=== PATIENT | female | born 1985 | race Hispanic/Latino ===

== ENCOUNTER 2024-11-04 15:35 | Emergency (ER) | payer MEDICARE, SELFPAY ==
--- OUTSIDE RECORDS SUMMARY | 2024-11-04 15:42 | XMS_ITS | Continuity of Care Document ---
Author Organization [facility] Address [address] [place] [address] Phone Care Team Providers Care Emergency Communications Dispatcher Name Role Phone Tom ALLYSONNeftali Unavailable Unavailable Allergies, Adverse Reactions, Alerts Substance Reaction Status Criticality latex Rash Active No Information Medications Medication Instructions Dosage Effective Dates (start - stop) Status Comments meloxicam 15 mg tablet TAKE 1 TABLET BY MOUTH EVERY DAY - Active hydrocodone 5 mg-acetaminophen 325 mg tablet take 1 tablet by oral route every 4 - 6 hours as needed for pain for DX: left dequervains M65.4 1 tablet - Active topiramate 50 mg tablet - Active Savella 50 mg tablet - Active GABAPENTIN (unknown strength) Not Available - Active propanolol - Active Procedures Procedure Date Office/outpatient visit,est, mod 2022 Office/outpatient visit,est, mod 2022 Wrist Xray Complete Min 3 Views 023 Office/outpatient visit,est, mod 2022 Postop followup visit Postop followup visit Wrist/forearm Excision Lesion, Extensors Office/outpatient visit,est, mod 2022 Wrist Xray Complete Min 3 Views 023 Inj/Aspiration Small Joint Or Bursa (Fin gers,Toes) Office/outpatient visit,est, mod 2022 Dexamethasone Sodium Phosphate 23 Shoulder Xray Complete Min Of 2 Views Ju n-22-2023 Advance Directives Directive Yes / No Effective Date File Name No Information Encounters Encounter Description Practice Location Reason(s) For Visit Diagnoses Date Provider Providers Copied on Encounter Office/outpa tient visit,[facility], [address] [place] [address], [id number], tel:[phone] [facility] Body mass index (BMI) 33.0-33.9, adultWrist pain, rightWrist pain, leftOveruse syndrome of right hand, initial encounterOveruse syndrome of left hand, initial encounter 3 Tom Lindsay. [address] [place] [address], [id number] , . tel:[phone] Referring Provider: Neftali Santos, [address] [place] [address], [id number] . tel:[phone] Office/outpa tient visit,[facility], [address] [place] [address], [id number], tel:[phone] [facility] Radial styloid tenosynovitis [de Quervain]Ganglion , left wristPain in left wrist 3 Tom Lindsay. [address] [place] [address], [id number] , . tel:[phone] Referring Provider: Neftali Santos, [address] [place] [address], [id number] . tel:[phone] Office/outpa tient visit,[facility], [address] [place] [address], [id number], tel:[phone] [facility] wrist (chief complaint) Pain in unspecified wristBody mass index (BMI) 33.0-33.9, adultDe Quervain's tenosynovitis, rightCell phone elbow, right 3 Tom Lindsay. [address] [place] [address], [id number] , . tel:[phone] Referring Provider: Neftali Santos, [address] [place] [address], [id number] . tel:[phone] [facility] [address] [place] [address], [id number], tel:[phone] [facility] wrist (chief complaint) Body mass index (BMI) 33.0-33.9, adultEncounter for exam of blood pressure w/o abnormal findingsRadial styloid tenosynovitis [de Quervain]Ganglion , left wristPain in left wristOther specified postprocedural states 3 Tom Lindsay. [address], [place], [id number] , . tel:[phone] Referring Provider: Neftali Santos, [address] [place] [address], [id number] . tel:[phone] [facility], [address] [place] [address], [id number], tel:[phone] [facility] wrist (chief complaint) Body mass index (BMI) 34.0-34.9, adultEncounter for exam of blood pressure w/o abnormal findingsStatus post de Quervain's release surgery 3 Tom Lindsay. [address], [place], [id number] , [place]. tel:[phone] Referring Provider: Neftali Santos, [address] [place], [address] . tel:[phone] [facility], [address] [place] [address], [id number], tel:[phone] [facility] No Information 3 Lito Peraza. [address] [place] [address], [id number] , [place]. tel:[phone] Referring Provider: Stu Singletary, [address] [place] [address], [id number] . tel:[phone] [facility], [address] [place] [address], [id number], tel:[phone] [facility] No Information 3 Lito Peraza. [address] [place] [address], [id number] , [place]. tel:[phone] [facility], [address] [place] [address], [id number], tel:[phone] [facility] De Quervain's tenosynovitis, leftGanglion cyst of wrist, left 3 Lito Peraza. [address], [place], [id number] , . tel:[phone] Office/outpa tient visit,est, mod [facility], [address] [place] [address], [id number], tel:[phone] [facility] hand (chief complaint) Radial styloid tenosynovitis [de Quervain]Carpal tunnel syndrome, right upper limbGanglion cyst of wrist, left 3 Tom Lindsay. [address], [place], [id number] , . tel:[phone] Referring Provider: Neftali Santos, [address] [place], [address] . tel:[phone] Office/outpa tient visit,est, mod [facility], [address] [place] [address], [id number], tel:[phone] [facility] left wrist (chief complaint) Pain in left wristDe Quervain's tenosynovitis, left 3 Tom Lindsay. [address], [place], [id number] , . tel:[phone] Referring Provider: Camila White, [address] [facility], [place], [address]. tel:[phone] [facility], [address] [place] [address], [id number], tel:[phone] [facility] shoulder (chief complaint) Pain in right shoulderRight carpal tunnel syndromeLevator scapula syndromeDe Quervain's tenosynovitis, left 3 Tom Lindsay. [address], [place], [id number] , [place]. tel:[phone] Referring Provider: Camila White [address] [place], [address]. tel:[phone] Family History Family Member Type Diagnosis Age At Onset Problem Family history of Cancer, un known Problem Family history of Heart dise ase Problem Family history of Diabetes m kirstenshasta Payers Payer name Insurance type Covered green party ID Authoriza tion(s) No Information Social History Type Description Quantity Date Captured Comments Alcohol Use Details Unknown Caffeine Use Details Unknown Tobacco Use Status Current non-smoker Smoking Status Never smoker Non-Smoking Tobacco Use Details : No Details Available : No Details Available Sex Female Vital Signs Date / Time: Height Weight BMI Pulse Rate Blood Pressure Temperature Respiratory Rate Body Surface Area Head Circumference Head Circ. Percentile Wt./Roddy. Percentile BMI percentile Pulse Ox Inhaled Ox 10:05 AM 66.00 in 94.801 kg (209.00 lbs) 33.7 3 kg/m eter (2) 83 /min 110/61 mm[Hg] 2.10 meter(2) Chief Complaint And Reason For Visit No Information Reason For Referral Reason For Referral No Information Plan Of Treatment Date Type Action Status Goal Tobacco cessation counseling completed Goal Tobacco cessation counseling completed Goal Tobacco cessation counseling completed Goal Tobacco cessation counseling completed Future Order: Radiology Order Wr ist Xray Complete Min 3 Views ([id number]), Ordered on: Ordered Future Order: Radiology Order Wr ist Xray Complete Min 3 Views ([id number]), Ordered on: Ordered Future Order: Radiology Order Ne edle EMG, Each Extremity Complete 5 Or More Muscles ([id number]), Ordered on: Ordered Future Order: Radiology Order Ne rve Conduction Studies 5-6 ([id number]), Ordered on: Ordered Future Order: Radiology Order Sh oulder Xray Complete Min Of 2 Views ([id number]), Ordered on: Ordered History Of Present Illness Encounter Date Complaint History Of Prese nt Illness wrist wrist wrist hand left wrist shoulder Functional Status Date Functional Assessmen t No Information Instructions Date Instruction Additional Infor mation Giving encouragement to exercise Related to Body mass index [BMI] 33.0-33.9, adult Giving encouragement to exercise Related to Body mass index [BMI] 33.0-33.9, adult Giving encouragement to exercise Related to Blood pressure check Prescribed activity/exercise edu cation Related to Body mass index [BMI] 33.0-33.9, adult Giving encouragement to exercise Related to Blood pressure check Giving encouragement to exercise Related to Body mass index [BMI] 34.0-34.9, adult Assessments Type Assessment Date assessment Body mass index [BMI] 33.0-33.9, adult assessment Wrist pain, right assessment Wrist pain, left assessment Overuse syndrome of right hand, initial encounter assessment Overuse syndrome of left hand, i nitial encounter Patient Care Teams Name Effective Dates (start - stop) Status Members No Information
--- OUTSIDE RECORDS SUMMARY | 2024-11-04 15:42 | XMS_ITS | Data Portability ---
Author Organization [place] - [facility] Address [address] [place] [address] Assessment No assessment recorded. Plan of Treatment Reminders Order Date Submit Date Provider Last Modified By Organization Details Last Modified Time Details Appointments None record ed. Lab None record ed. Referral None record ed. Procedures None record ed. Surgeries None record ed. Imaging None record ed. Medication Orders None record ed. Patient TargetsNo targets recorded. Patient InstructionsNo instructions recorded. Reason for Referral None Reported. Results Created Date Observation Date Name Description Value Unit Range Abnormal Flag Note LastModifiedBy Organization Detail LastModifiedTime 12/17/1912/15/2022 XR, shoul josé manuel, 2 or more view [facility] [place], [place] [address] [place] [address] JEVON Bryan REPORT Name: HANK BAZANGEORGIA Room #: : 1984 Accoun t #: [id number] Bed #: Age: 37 Years Patien t Type: Outpat ient Order Date/T beau: [id number] Sex: F Admit Date/T beau: Order# : Access ion#: Exam Descri ption: Admitt ing Diagno sis: [id number] 1 UE-SHL 2VW PLUS Dictat ed By: Jamaal Madrigal ng Physic анна: BK URBANO Attend ing Physic анна: BK URBANO Primar y Care Physic анна: BK URBANO Histor y: pain in right should er Techni que: Right should er series . 8 views. Compar isons: None availa ble. Findin gs: There is no eviden ce for fractu re or disloc ation. Alignm ent is normal . Mild acromi oclavi cular degene rative change s identi fied. Glenoh umeral joint appear s normal . No supici ous osseou s lesion . Soft tissue s and visual ized lungs are unrema rkable . IMPRES FARAZ: Mild acromi oclavi cular degene rative change s. Electr onical ly signed by: Jamaal Madrigal MD 023 8:11 AM CDT Workst ation: [id number] PAGE [address] (Radiology) [address] [place] [address], [id number], 12/16/2022 09:29:40 12/17/19 23 12/15/2022 XR, shoul josé manuel, 2 or more view No observ ation record ed. [address] (Imaging) [address] [place] [address], [address], 12/16/2022 13:49:07 Result Notes None recorded. Problems Name Problem SNOMED Code Status Onset Date Resolution Date Notes Provider Name and Address Organization Details Recorded Time Pain of right shoulder joint [id number] 00 Active 2022 Joanne Pugh [facility] 16:19:16 Problem Notes None recorded. Procedures Surgical History None recorded. Imaging Results Imaging Date Name Status LastModified by Organiz ation Details LastModified Time 12/15/2022 XR, shoulder, 2 or more view completed [address] (Radiology) [address] [place], [address], 12/16/2022 09:29:40 12/15/2022 XR, shoulder, 2 or more view completed [address] (Imaging) [address] [place], [address], 12/16/2022 13:49:07 Procedure Notes None recorded. Medical Equipment None Reported. Medications Name Sig Start Date Stop Date Status Note LastModified by Organization Details LastModified Time promethazine- DM 6.25 mg-15 mg/5 mL oral syrup TAKE 5 ML BY MOUTH EVERY 4 HOURS NEEDED. NOT TO EXCEED 30 ML IN 24 HOURS active Not Available Not Available No t Available tizanidine 4 mg tablet TAKE 1 TABLET BY MOUTH EVERY 6 HOURS NEEDED active Not Available Not Available No t Available famotidine 40 mg tablet TAKE 1 TABLET BY MOUTH EVERY DAY active Not Available Not Available No t Available prednisone 20 mg tablet TAKE 2 TABLETS BY MOUTH EVERY DAY FOR 5 DAYS active Not Available Not Available N ot Available topiramate 25 mg tablet TAKE 1 TABLET BY MOUTH AT BEDTIME FOR 7 DAYS, THEN INCREASE TO 2 TABLETS BY MOUTH AT BEDTIME active Not Available Not Available No t Available propranolol 60 mg tablet active Not Available Not Available Not Available propranolol 10 mg tablet TAKE 1 TABLET BY MOUTH THREE TIMES DAILY NEEDED FOR ANXIETY active Not Available Not Available No t Available amoxicillin 875 mg tablet active Not Available Not Availabl e Not Available amitriptyline 25 mg tablet TAKE 1 TABLET BY MOUTH EVERY NIGHT AT BEDTIME. INCREASE BY 1 EVERY WEEK OR 2 UNTIL TAKING 3 TABLETS EVERY NIGHT active Not Available Not Available No t Available estradiol 1 mg tablet TAKE 1 TABLET BY MOUTH EVERY DAY active Not Available Not Available No t Available amitriptyline 10 mg tablet TAKE 1 TABLET BY MOUTH EVERY NIGHT AT BEDTIME active Not Available Not Available No t Available meclizine 25 mg tablet active Not Available Not Available No t Available orphenadrine citrate ER 100 mg tablet,extend ed release TAKE 1 TABLET BY MOUTH TWICE DAILY active Not Available Not Available No t Available gabapentin 300 mg capsule TAKE 1-3 CAPSULES BY MOUTH AT BEDTIME FOR nerve pain active Not Available Not Available No t Available folic acid 1 mg tablet TAKE 1 TABLET BY MOUTH EVERY DAY active Not Available Not Available No t Available Vitamin D2 1,250 mcg (50,000 unit) capsule TAKE 1 CAPSULE BY MOUTH EVERY WEEK active Not Available Not Available N ot Available fluticasone propionate 50 mcg/actuation nasal spray,suspens ion SPRAY 1 SPRAY IN EACH NOSTRIL EVERY DAY active Not Available Not Available No t Available naproxen 500 mg tablet TAKE 1 TABLET BY MOUTH TWICE DAILY active Not Available Not Available No t Available cholestyramin e (with sugar) 4 gram powder for susp in a packet mix one PACKET AND drink BY MOUTH EVERY DAY active Not Available Not Available No t Available bupropion HCl XL 150 mg 24 hr tablet, extended release TAKE 1 TABLET BY MOUTH EVERY DAY active Not Available Not Available No t Available topiramate 50 mg tablet active Not Available Not Available No t Available duloxetine 20 mg capsule,delay ed release TAKE 1 CAPSULE BY MOUTH TWICE DAILY active Not Available Not Available No t Available pregabalin 50 mg capsule TAKE 1 CAPSULE BY MOUTH TWICE A DAY active Not Available Not Available No t Available Savella 50 mg tablet TAKE 1 TABLET BY MOUTH TWICE A DAY. *AFTER TITRATION PACK* active Not Available Not Available No t Available Savella 12.5 mg (5)-25 mg(8)-50mg(42 ) tablets in a dose pack active Not Available Not Available Not Available Vitals Date Recorded Body height Body mass index (BMI) Body weight Heart rate Oxygen saturation Oxygen saturation in Arterial blood by Pulse oximetry Pain severity - 0-10 verbal numeric rating [Score] - Reported Systolic blood pressure Diastolic blood pressure Provider Name and Address Organization Details Last Updated DateTime 3 167.64 cm 34.1 kg/m2 60766.4 2 g 96 /min 98 % 98 % 7 122 mm[Hg] 76 mm[Hg] [facility] 3 15:36:12 Social History None recorded. Functional Status None recorded. Mental Status None recorded. Family History Nothing Reported. Medical History No medical history recorded. Gynecological HistoryNo gynecological history recorded. Obstetrics History GPAL:G 0 P 0 0 0 0 Past Encounters Encounter ID Performer Location Encounter Start Date Encounter Closed Date Diagnosis/Indication Diagnosis SNOMED-CT Code Diagnosis ICD10 Code Diagnosis Note [id number] [facility] [address] [place] [address] 12/15/2022 14:54:28 12/15/2022 16:06:03 Health Concerns Section Related Observation LastModified by Organization Detai ls LastModified Time None Recorded Concern Status LastModified by Organization Details LastModified Time None Recorded Advance Directives Directive None Recorded Payers Encounter Date Sequence Insurance Name Policy Number Policy Farooq Covered Member ID Farooq Member ID Guarantor Name 12/15/2022 1 [employer] OF OR Mal[facility] ON OR AFTER 08/28/2020 (MEDICAID REPLACEMENT - HMO) [place] Mer[employer] [id number] [place] [facility] Episode No OBEpisode recorded.
--- OUTSIDE RECORDS SUMMARY | 2024-11-04 15:42 | XMS_ITS | Continuity of Care Document ---
Author Organization [facility] Address [address] [place] [address] Phone Care Team Providers Care Adjuster Name Role Phone Lg Woods MD Unavailable Unavailable Allergies, Adverse Reactions, Alerts Substance Reaction Status Criticality HYDROXYCHLOROQUINE SULFATE Active N o Information latex Active No Information Medications Medication Instructions Dosage Effective Dates (start - stop) Status Comments Topamax 50 mg tablet take 1 tablet by or al route every day 50 MG - Active Savella 50 mg tablet take 1 Tablet by or al route 2 times every day 50 MG - Active orphenadrine citrate ER 100 mg tablet,extended release take 1 tablet by oral route 2 times every day - Active propranolol 10 mg tablet take 1 Tablet by oral route 3 times every day 10 MG - Active cholestyramine (with sugar) 4 gram oral powder take 1 scoop by oral route 1 time every day - Active gabapentin 300 mg capsule take 1 capsule by oral route 2 times every day 300 MG - Active estradiol 1 mg tablet take 1 tablet by o ral route every day 1 MG - Active famotidine 40 mg tablet take 1 tablet by oral route every day at bedtime 40 MG - Active fluticasone propionate 50 mcg/actuation nasal spray,suspension 1 spray by intranasal route every day - Active Procedures Procedure Date Med record copy admin Med record copy per page Advance Directives Directive Yes / No Effective Date File Name No Information Encounters Encounter Description Practice Location Reason(s) For Visit Diagnoses Date Provider [facility], [address] , [place], [address], [place] tel:[phone] [facility] No Information 4 Chuck Castanon. [address], [place], [address], [place]. tel: [phone] [facility], [address] , [place], [address], [place] tel:[phone] [facility] Headaches (chief complaint)Hx of fibromyalgia (chief complaint) Body mass index (BMI) 35.0-35.9, adultMigraine without aura and without status migrainosus, not intractableFibromyalgia 3 Chuck Castanon. [address], [place], [address], [place]. tel: [phone] [facility], [address] , [place], [address], tel:[phone] [facility] Headaches (chief complaint)Hx of fibromyalgia (chief complaint) Body mass index (BMI) 35.0-35.9, adultMigraine without aura and without status migrainosus, not intractableFibromyalgia 3 Chuck Castanon. [address], [place], [address], [place]. tel: [phone] [facility], [address] , [place], [address], [place] tel:[phone] [facility] Headaches (chief complaint)Hx of fibromyalgia (chief complaint) Body mass index (BMI) 35.0-35.9, adultMigraine without aura and without status migrainosus, not intractableFibromyalgia 3 Chuck Castanon. [address] , [place], [address], [place]. tel:[phone] [facility], [address] , [place], [address], [place] tel:[phone] [facility] Hx of fibromyalgia (chief complaint)Hea daches (chief complaint) Body mass index (BMI) 35.0-35.9, adultFibromyalgiaMigrain e without aura and without status migrainosus, not intractable 3 Chuck Castanon. [address], [place], [address], [place]. tel: [phone] [facility], [address], [place], [address], [place] tel:[phone] [facility] Hx of fibromyalgia (chief complaint) Body mass index (BMI) 35.0-35.9, adultFibromyalgia 2 Chuck Castanon. [address], [place], [address], [place]. tel: [phone] [facility], [address], [place], [address], [place] tel:[phone] [facility] Hx of fibromyalgia (chief complaint)Hea daches (chief complaint) Body mass index (BMI) 36.0-36.9, adultFibromyalgiaMigrain e without aura and without status migrainosus, not intractable 2 Chuck Castanon. [address], [place], [address], [place]. tel: [phone] [facility], [address], [place], [address], [place] tel:[phone] [facility] No Information 2 Chuck Castanon. [address], [place], [address], [place]. tel: [phone] [facility], [address], [place], [address], [place] tel:[phone] [facility] Hx of fibromyalgia (chief complaint)Hea daches (chief complaint) Body mass index (BMI) 35.0-35.9, adultFibromyalgiaMigrain e without aura and without status migrainosus, not intractable 2 Chuck Castanon. [address], [place], [address], [place]. tel:[phone] Family History Family Member Type Diagnosis Age At Onset Mother Problem HBP/diabetes Father Problem Heart disease/diabetes Payers Payer name Insurance type Covered libertarian ID Authoriza tion(s) No Information Social History Type Description Quantity Date Captured Comments Sex Female Smoking Status No Information Chief Complaint And Reason For Visit No Information Plan Of Treatment Date Type Action Status Goal Lifestyle education regardin g diet completed Goal Lifestyle education regardin g diet completed Goal Lifestyle education regardin g diet completed Goal Lifestyle education regardin g diet completed Goal Lifestyle education regardin g diet completed Goal Lifestyle education regardin g diet completed Goal Lifestyle education regardin g diet completed History Of Present Illness Encounter Date Complaint History Of Prese nt Illness Headaches The patient retu rns for follow-up of migraine headaches and fibromyalgia. At the present time, she has infrequent headaches and they are under adequate control with Topamax 50 mg p.o. HS and propranolol 10 mg p.o. t.i.d. No report of limb paresthesia, cognitive impairment or dizziness on the current drug regimen. Hx of fibromyalgia This patient has a history of fibromyalgia and she is currently on Savella 50 mg b.i.d. and orphenadrine 100 mg p.o. b.i.d. these 2 medications are helping her fibromyalgia but she does have some daytime drowsiness. This being the case, I did asked her to reduce the orphenadrine to 100 mg p.o. HS. Headaches The patient retu rns for follow-up of migraine headaches and fibromyalgia. During the last visit, she was started on Topamax 50 mg p.o. HS and this has resulted in moderate improvement of her headaches. No report of limb paresthesia or cognitive impairment while on this medication. She would like to stay on the same dosage of Topamax at the present time. Hx of fibromyalgia She has a tati g history of fibromyalgia and is currently taking Norflex for this condition. During the last visit, she reports that her jewelry casting model maker apprentice was planning to put her on a new medication but this has not been executed yet. She does report having underlying anxiety and depression, and arrangements have been made for her to see a local psychiatrist or counselor shortly. The patient denies having suicidal ideation at the present time. Headaches The patient retu rns for follow-up of headaches and fibromyalgia. Currently, she reports having 2 migraine attacks weekly. She is taking propranolol 10 mg p.o. t.i.d. and Excedrin p.r.n. at this time. I suggested a trial of Topamax therapy and she is agreeable. Hx of fibromyalgia She was recen tly started on pregabalin therapy for this condition. It did help her pain but unfortunately also caused her to have a skin rash. She has been taken off pregabalin therapy with resolution of the skin rash. She continues on Norflex 300 mg p.o. b.i.d. at this time. She notes that her jewelry casting model maker apprentice is planning to put her on a new medication for the fibromyalgia shortly. Hx of fibromyalgia The patient r luke for follow-up of fibromyalgia. During the last visit, she was placed on pregabalin 50 mg p.o. b.i.d. This medication did help her fibromyalgia but also caused her to have a mild skin rash and dizziness. This being the case, I did asked her to stop using this medication. Headaches She has a histor y of migraine headaches and therehas been worsening of this condition lately. In reviewing her medication list, I noted that she is on propranolol 10 mg p.o. t.i.d. at this time. She does not know the names of past medications used for this condition presently. Hx of fibromyalgia The patient r luke for follow-up of fibromyalgia. She saw a local jewelry casting model maker apprentice recently and he concurred with this diagnosis. The patient also complains of having posterior neck pain and occipital headaches. I had suggested a trial of trigger point injections but she would like to put this off presently. Her current medications include duloxetine 20 mg p.o. b.i.d., gabapentin 300 mg p.o. b.i.d. and Norflex 300 mg p.o. b.i.d. I suggested a trial of pregabalin and she is agreeable. Hx of fibromyalgia The patient r luke for follow-up of fibromyalgia. Since the last office visit, she has seen a jewelry casting model maker apprentice at [facility]. He confirmed the diagnosis of fibromyalgia in this patient and she was begun on Norflex 300 mg p.o. b.i.d. The patient is not certain as to whether this medication is helping her condition. Currently, she is also on duloxetine 20 mg p.o. daily and gabapentin for treatment of back pain. Headaches She has a histor y of migraine headaches but this has not been bothersome of late. She has been taking Tylenol p.r.n. for the above headaches. She also had a sleep study done recently and there is no evidence of obstructive sleep apnea by history. Hx of fibromyalgia I was request ed to see this 36-year-old woman for follow-up of fibromyalgia. The following history was provided to me by the patient and the records of Garima Pelletier APRN. She has been known to have this condition following her hysterectomy in the winter of 2020. She complains of a persistent aching pain over the posterior neck with radiation to both shoulders, and the lumbar spine. She also has pain in both wrists, both knees and calves. She complains of nocturnal numbness involving both hands. She also has numbness involving calves and feet. She describes numbness as a pins and needles sensation. She also has weakness but not atrophy involving the arms and less so the legs. She does not require a cane for ambulation and there has been no report of any falls. She denies having urinary incontinence. She has a history of positive VENTURA and COVID-19 infection in June 2020. She has seen Dr. Ramo Hopper at [facility] for evaluation of this condition. He also suspects that the patient has obstructive sleep apnea. She was placed on amitriptyline 75 mg p.o. HS and it did not help her fibromyalgia. Headaches The patient has been bothered by intermittent headaches since 2019. She complains of having a throbbing pain over the occiput with radiation to the frontal area of her head. When severe, they have been associated with photophobia and sonophobia, but not nausea or emesis. Each attack would last 1- 2 days and she has been having 2 attacks weekly of late. The patient has been taking nonprescription oral analgesics for treatment of this condition presently. Instructions Date Instruction Additional Infor mation Lifestyle education regarding di et Related to Body mass index [BMI] 35.0-35.9, adult Lifestyle education regarding di et Related to Body mass index [BMI] 35.0-35.9, adult Lifestyle education regarding di et Related to Body mass index [BMI] 35.0-35.9, adult Lifestyle education regarding di et Related to Body mass index [BMI] 35.0-35.9, adult Lifestyle education regarding di et Related to Body mass index [BMI] 35.0-35.9, adult Lifestyle education regarding di et Related to Body mass index [BMI] 36.0-36.9, adult Lifestyle education regarding di et Related to Body mass index [BMI] 35.0-35.9, adult Assessments Type Assessment Date No Information
[2024-11-04 15:48] VITALS: BP 126/87; PULSE 120; RESP 20; TEMP 36.4; O2SAT 100
--- NOTE | 2024-11-04 16:31 | ED_ITS ---
HPI - Abdominal Pain General Chief Complaint: Abdominal Pain Stated Complaint: vomiting and rib pain/ chills Source: patient History of Present Illness HPI narrative: Patient presents for evaluation of abdominal pain. Symptom onset today. Pain is constant with interval worsening in improvement. She cannot identify any aggravating or alleviating factors. She describes the pain as sharp and severe. She has associated nausea, vomiting, diarrhea, and chills. She states she was diagnosed with influenza about nine days ago. Her primary symptoms at that time were sinus congestion and headache. She was given Tamiflu. Her symptoms improved. She denies any urinary symptoms. She has a history of ovarian and cervical cancer and is status post total hysterectomy. Related Data Allergies Allergy/AdvReac Type Severity Reaction Status Date / Time aspirin Allergy Intermediate Rash Verified 11/04/24 15:49 latex Allergy Intermediate Rash Verified 11/04/24 15:49 Review of Systems Review of Systems: CONSTITUTIONAL: Reports chills. Denies fever, or sweats. EYES: Denies visual changes, redness, or discharge. ENT: Denies rhinorrhea, congestion, sore throat, or otalgia. CARDIOVASCULAR: Denies chest pain, palpitations, or edema. RESPIRATORY: Denies cough or dyspnea. GASTROINTESTINAL: reports abdominal pain, nausea, vomiting and diarrhea GENITOURINARY: Denies dysuria or hematuria. SKIN: Denies rash or itching. MUSCULOSKELETAL: Denies back pain, joint pain, or myalgia. NEUROLOGIC: Denies headache, numbness, dizziness, or weakness. PSYCHIATRIC: Denies anxiety or depression. [facility] Past Medical History Medical History Ovarian cancer Cervical cancer Surgical History Surgical History History of total hysterectomy Family History Family History Mother Family history non-contributory Social History Social History Living arrangements: with family Gender identity (if verbalized by the patient): Female Sexual Orientation (if Verbalized by the Patient): Straight or Heterosexual Spiritual care concerns: No Exam Narrative: GENERAL:Visibly uncomfortable. Well-appearing, well-nourished, and in no acute distress. HEAD: Normocephalic, atraumatic. EYES: PERRLA and EOMI. ENT: Nares clear, no rhinorrhea or epistaxis. Mucous membranes moist. Oropharynx without tonsillar hypertrophy exudate or other lesions. Bilateral TMs pearly gunter nonbulging NECK: Supple. No adenopathy or masses. No carotid bruits or JVD CHEST: Clear to auscultation. No respiratory distress. No wheezes rales or rhonchi HEART: Regular rate and rhythm. No murmur heard. Normal peripheral pulses. ABDOMEN: Soft, nondistended, normal active bowel sounds. There is tenderness in RUQ, RLQ and suprapubic region. there is guarding but no rebound EXTREMITIES: Normal range of motion. No edema. SKIN: Warm, dry, no rash. NEURO: No focal deficits. Alert and oriented x3. PSYCH: Normal mood and affect. Course Course Emergency Course: This is a 39-year-old female who presented for evaluation of abdominal pain. She is tender on the right side and is guarding. I recommended she be transferred to the hospital for further evaluation and workup. She is agreeable with this plan. [facility] in [place], [place] is her facility of choice. I contacted the emergency department at [facility] and spoke with RN, Gillian. She indicates that Dr Bolton will accept patient for transfer there. Patient transferred via private vehicle. Level of Care: Express Care Visit Vital Signs Vital signs: Vital Signs Temperature 36.4 C L 11/04/24 15:48 Pulse Rate 120 H 11/04/24 15:48 Respiratory Rate 11/04/24 15:48 Blood Pressure 126/87 11/04/24 15:48 Pulse Oximetry 100 11/04/24 15:48 Oxygen Delivery Room Air 11/04/24 15:48 Temperature 36.4 C L 11/04/24 15:48 Pulse Rate 120 H 11/04/24 15:48 Respiratory Rate 11/04/24 15:48 Blood Pressure 126/87 11/04/24 15:48 Pulse Oximetry 100 11/04/24 15:48 Oxygen Delivery Room Air 11/04/24 15:48 Discharge Plan Discharge Clinical Impression: Abdominal pain Patient Disposition: Acute Care Hospital Condition: Stable Instructions: Abdominal Pain (ED) Patient Language: Polish Follow-up/Referrals: UNKNOWN,DOCTOR [Primary Care Provider] - Time of Disposition: 16:31
== END 2024-11-04 16:30 | disposition short-term general hospital (02) ==
PROVIDERS: Emergency Provider Nurse Practitioner
DX: R10.11 Right upper quadrant pain (principal); R10.31 Right lower quadrant pain; Z85.43 Personal history of malignant neoplasm of ovary; Z85.41 Personal history of malignant neoplasm of cervix uteri; Z90.710 Acquired absence of both cervix and uterus
CPT/HCPCS: 99212; G0463

== ENCOUNTER 2024-11-23 13:44 | Emergency (ER) | payer MEDICARE, SELFPAY ==
[2024-11-23 13:54] VITALS: BP 120/78; PULSE 90; RESP 17; TEMP 36.1; O2SAT 100
--- NOTE | 2024-11-23 13:54 | ED.SKABFB ---
HPI - Skin/Abscess/Foreign Bdy General Chief complaint: Skin/Abscess/Foreign Body Stated complaint: Leg bruising Time Seen by Provider: 11/23/24 13:54 Source: patient Mode of arrival: ambulatory Limitations: no limitations History of Present Illness HPI narrative: 39 yo F presents with bruise to L lower leg. Was kicked by her dog 2 wks ago. Has a hard spot to center of bruise. Concerned for DVT. All systems reviewed and negative except as noted above. Related Data Allergies Allergy/AdvReac Type Severity Reaction Status Date / Time aspirin Allergy Mild Rash Verified 11/23/24 13:50 latex Allergy Mild Rash Verified 11/23/24 13:50 Review of Systems Review of Systems: CONSTITUTIONAL: Denies fever, chills, or sweats. EYES: Denies visual changes, redness, or discharge. ENT: Denies rhinorrhea, congestion, sore throat, or otalgia. CARDIOVASCULAR: Denies chest pain, palpitations, or edema. RESPIRATORY: Denies cough or dyspnea. GASTROINTESTINAL: Denies abdominal pain, nausea, vomiting, or diarrhea. GENITOURINARY: Denies dysuria or hematuria. SKIN: Denies rash or itching. Reports bruise to left lower leg. MUSCULOSKELETAL: Denies back pain, joint pain, or myalgia. NEUROLOGIC: Denies headache, numbness, or weakness. PSYCHIATRIC: Denies anxiety or depression. All other systems reviewed are negative, except as documented in HPI. [facility] Past Medical History Medical History Ovarian cancer Cervical cancer Surgical History Surgical History History of total hysterectomy Family History Family History Mother Family history non-contributory Social History Social History Living arrangements: with family Gender identity (if verbalized by the patient): Female Sexual Orientation (if Verbalized by the Patient): Straight or Heterosexual Spiritual care concerns: No Comments At time of signature, agree with nursing past medical, surgical, social and family history. There is no relevant family history pertinent to the presenting complaint. Exam Narrative: GENERAL: This is a well-nourished, well-developed patient, in no apparent distress. HEAD: normocephalic, atraumatic. EYES: PERRL. Sclera clear/white. Vision is grossly intact. EARS: External ears normal NOSE: External nose normal NECK: Neck supple, non-tender without lymphadenopathy, masses or thyromegaly. CARDIOVASCULAR: Regular rate and rhythm without murmurs, gallops, or rubs. RESPIRATORY: Clear to auscultation. Breath sounds equal bilaterally. No wheezes, rales, or rhonchi. SKIN: warm, Dry, intact with no suspicious lesions or rash, good texture and turgor. bruise to medial aspect L lower leg approx. 10x 8 cm in normal stages of healing, purplish blue. no warmth on erythema NEURO: awake, alert, and oriented to person, place and time. There were no obvious focal neurologic abnormalities. EXTREMITIES: No joint tenderness, effusion, or edema noted. there is no edema, tenderness, warmth or color change to LLE concerning for DVT. Course Course Level of Care: Express Care Visit Vital Signs Vital signs: reviewed MDM - Skin/Abscess/Foreign Bdy MDM Narrative Medical decision making narrative: bruise to LLE without concerns from infection. No findings concerning for DVT. Educated on DVT and when she should go to ER. Please be advised this is a medical document. It is intended for [id number] communication. It is written in medical language and may contain unfamiliar abbreviations or verbiage. Medical documents are intended to carry relevant information, facts as evident, and the clinical opinion of the practitioner at the time of the encounter. This report may have been done utilizing a voice recognition system. Attempts have been made to correct errors. However, there may be uncorrected grammatical, spelling, and recognition errors present. The file time of this note does not necessarily represent the time of service. Discharge Plan Discharge Clinical Impression: Contusion of left leg Qualifiers: Encounter type: initial encounter Qualified Code(s): S80.12XA - Contusion of left lower leg, initial encounter Patient Disposition: Home, Self-Care Condition: Stable Instructions: Contusion in Adults (ED) Additional Instructions: You have a bruise to your let lower leg in normal stages on healing. Take tylenol every 6 to 8 hours as needed for pain. Elevate when at rest. If you have swelling to your lower leg with pain go to the ER. Patient Language: Telugu Follow-up/Referrals: UNKNOWN,DOCTOR [Primary Care Provider] - Time of Disposition: 14:05
--- OUTSIDE RECORDS SUMMARY | 2024-11-23 15:38 | XMS_ITS | Clinical Summary ---
Author Organization [facility] Address [address] [place] [id number] Care Team Providers Care Cash Register Mechanic Name Role Phone Garima Pelletier NP Primary Care Provider [phone] Allergies Active Allergy Reactions Criticality Noted Date Comments Aspirin Other (see comments) Medium 03/25/2020 Latex 03/24/2022 Medications acetaminophen (TYLENOL) 500 mg tablet Take 1 tablet (500 mg total) by mouth every 6 (six) hours as needed Active fluticasone propionate (FLONASE) 50 mcg/actuation nasal spray SPRAY 1 SPRAY IN EACH NOSTRIL EVERY DAY 022 Active topiramate (TOPAMAX) 50 mg tablet topiramate 50 mg tablet Active ergocalciferol (VITAMIN D2) 1,250 mcg (50,000 unit) capsule Vitamin D2 1,250 mcg (50,000 unit) capsule TAKE 1 CAPSULE BY MOUTH EVERY WEEK Active promethazine-DM (PROMETHAZINE-D M) 6.25-15 mg/5 mL syrup Active famotidine (PEPCID) 20 mg tablet 023 Active cholestyramine (QUESTRAN) 4 gram packet MIX 1 PACKET AND drink BY MOUTH EVERY DAY 023 Active cetirizine (ZyrTEC) 10 mg tablet Take 1 tablet (10 mg total) by mouth daily 023 Active pregabalin (Lyrica) 200 mg capsuleIndicati ons:Fibromyalgi a Take 1 capsule (200 mg total) by mouth 2 (two) times a day 60 capsule 5 023 Active HYDROcodone-greg taminophen (NORCO) 5-325 mg per tabletIndicatio ns:Fibromyalgia ,Acute exacerbation of chronic low back pain Take 1 tablet by mouth every 6 (six) hours as needed for moderate pain 7 tablet Active Additional Information Patient not taking.Reported on 11/01/2024 hydroxychloroqu ine (PLAQUENIL) 200 mg tablet Take 1 tablet (200 mg total) by mouth daily Active folic acid (FOLVITE) 1 mg tablet Take 1 tablet (1 mg total) by mouth daily Active gabapentin (NEURONTIN) 300 mg capsule TAKE 1 TO 3 CAPSULES BY MOUTH AT BEDTIME FOR nerve pain Active escitalopram (LEXAPRO) 5 mg tablet TAKE 1 TABLET EVERY DAY BY ORAL ROUTE AT BEDTIME FOR 30 DAYS, FOR DEPRESSION AND ANXIETY. Active DULoxetine (CYMBALTA) 20 mg capsule Take 1 capsule (20 mg total) by mouth 2 (two) times a day Active buPROPion XL (Wellbutrin XL) 150 mg 24 hr tablet TAKE 1 TABLET EVERY DAY BY ORAL ROUTE, FOR DEPRESSION. Active amitriptyline (ELAVIL) 10 mg tablet Take 1 tablet (10 mg total) by mouth nightly Active QUEtiapine (SEROquel) 50 mg tablet Take 1.5 tablets (75 mg total) by mouth daily Active propranoloL (INDERAL) 10 mg tablet Take 1 tablet (10 mg total) by mouth every 8 (eight) hours as needed for anxiety Active omeprazole (PriLOSEC) 40 mg capsule Take 1 capsule (40 mg total) by mouth 2 (two) times a day before meals Active milnacipran (Savella) 50 mg tablet tablet Take 1 tablet (50 mg total) by mouth 2 (two) times a day Active FLUoxetine (PROzac) 40 mg capsule Take 1 capsule (40 mg total) by mouth daily Active tirzepatide, weight loss, (ZEPBOUND) 5 mg/0.5 mL Pen InjectionIndica tions:Class 2 obesity due to excess calories without serious comorbidity with body mass index (BMI) of 35.0 to 35.9 in adult Inject 5 mg under the skin every 7 days Administer one pre-filled single-dose pen subcutaneously every 7 days. 2 mL 3 10/18/2 024 Active Additional Information Patient not taking.Reported on 11/01/2024 ondansetron (ZOFRAN) 4 mg tablet Take 1 tablet (4 mg total) by mouth every 6 (six) hours 12 tablet 024 Active diCYCLOMine (BENTYL) 20 mg tablet Take 1 tablet (20 mg total) by mouth 2 (two) times a day 20 tablet Active celecoxib (CeleBREX) 200 mg capsuleIndicati ons:Fibromyalgi a TAKE 1 CAPSULE (200 MG TOTAL) BY MOUTH DAILY NEEDED FOR MODERATE PAIN ,TAKE WITH FOOD 30 capsule 3 024 2024 Active albuterol HFA 90 mcg/actuation inhaler inhale 2 puffs every 4 hours by inhalation route as needed 025 Active meloxicam (MOBIC) 15 mg tablet Take 1 tablet (15 mg total) by mouth daily 023 Active methylPREDNISol one (MEDROL) 8 mg tablet TAKE 5 TABS (40MG) BY MOUTH EVERY 6 HOURS FOR 1 WEEK THEN 2 TABS (16MG) EVERY OTHER DAY FOR 1 MONTH 025 Active orphenadrine (NORFLEX) 100 mg 12 hr tabletIndicatio ns:Fibromyalgia ,Strain of muscle, fascia and tendon of lower back, initial encounter Take 1 tablet (100 mg total) by mouth 2 (two) times a day as needed for muscle spasms 60 tablet 1 025 Active orphenadrine (NORFLEX) 100 mg 12 hr tabletIndicatio ns:Fibromyalgia Take 1 tablet (100 mg total) by mouth 2 (two) times a day as needed for muscle spasms 60 tablet 022 2024 Discontinued(R eorder*) methocarbamoL (ROBAXIN) 500 mg tablet 023 2024 Discontinued cyclobenzaprine (FLEXERIL) 10 mg tablet Take 1 tablet (10 mg total) by mouth every 8 (eight) hours as needed 2024 Discontinued diCYCLOMine (BENTYL) 20 mg tablet Take 1 tablet (20 mg total) by mouth every 6 (six) hours 024 2024 Discontinued colchicine (COLCRYS) 0.6 mg tabletIndicatio ns:Acute gout involving toe of right foot, unspecified cause Take 1 tablet (0.6 mg total) by mouth daily Take 2 tablets now then 1 tablet 1 hour later. 3 tablet 024 2024 Discontinued cyclobenzaprine (FLEXERIL) 10 mg tablet Take 1 tablet (10 mg total) by mouth 3 (three) times a day for 10 days 30 tablet 024 2024 Discontinued orphenadrine (NORFLEX) 100 mg 12 hr tabletIndicatio ns:Fibromyalgia ,Strain of muscle, fascia and tendon of lower back, initial encounter Take 1 tablet (100 mg total) by mouth 2 (two) times a day as needed for muscle spasms 60 tablet 1 025 2024 Discontinued(R eorder*) orphenadrine (NORFLEX) 100 mg 12 hr tabletIndicatio ns:Fibromyalgia ,Strain of muscle, fascia and tendon of lower back, initial encounter Take 1 tablet (100 mg total) by mouth 2 (two) times a day as needed for muscle spasms 60 tablet 1 025 2024 Discontinued(E ntered in Error*) Active Problems Problem Noted Date Diagnosed Date Class 2 obesity due to exces s calories without serious comorbidity with body mass index (BMI) of 35.0 to 35.9 in adult 06/23/2024 Encounters Date Type Department Care Team Description 11/08/2024 Telephone [facility] Internal Rheumatology [address] [place] [phone] Cadence Waldron [facility] CHOW 11/03/2024 Telephone [facility] [address] [phone] Lucia Mcacrty, GEMMA Change pharmacy to send rxs to 11/01/2024 11:00 AM PEDICURIST Office Visit [facility] Internal Rheumatology [address] [place] [phone] Manfred Morfin MD Fibromyalgia (Primary Dx); Plantar fasciitis; Pes cavus of both feet; Strain of muscle, fascia and tendon of lower back, initial encounter; Positive VENTURA (antinuclear antibody); Right elbow tendinitis 09/23/2024 11:36 PM PEDICURIST - 09/24/2024 3:35 AM PEDICURIST Emergency [address] [phone] Can Stahl MD Chest pain, unspecified type (Primary Dx); COVID-19 virus infection Discharge Disposition: Home self care 09/23/2024 Travel 08/29/2024 3:55 PM PEDICURIST - 08/29/2024 5:27 PM PEDICURIST Emergency [address] [phone] Balaji Baig MD Fall, initial encounter (Primary Dx); Strain of neck muscle, initial encounter; Strain of lumbar region, initial encounter; Contusion of face, initial encounter Discharge Disposition: Home self care 08/29/2024 Travel from Last 3 Months Social History Tobacco Use Types Packs/Day Years Used Date Smoking Tobacco: Never Smokeless Tobacco: Never Tobacco Cessation:Counseling Given: Not Answered Alcohol Use Standard Drinks/Week Comments Yes 0 (1 standard drink = 0.6 oz pure alcohol) less than 2-3 times a year/socially Comments No Sex and Gender Information Value Date Recorded Sex Assigned at Female 12/12/2023 6:09 PM CDT Legal Sex Female 4:27 PM CDT Gender Identity Female 12/12/2023 6:09 PM CDT Sexual Orientation Not on file Last Filed Vital Signs Vital Sign Reading Time Taken Comments Blood Pressure 122/76 11/01/2024 11:10 AM PEDICURIST Pulse 116 11/01/2024 11:10 AM PEDICURIST Temperature 36.3 C (97.4 F) 11/01/2024 11:10 AM PEDICURIST Respiratory Rate 16 11/01/2024 11:10 AM PEDICURIST Oxygen Saturation 99% 11/01/2024 11:10 AM PEDICURIST Inhaled Oxygen Concentration - - Weight 96 kg (211 lb 9.6 oz) 11/01/2024 11:10 AM PEDICURIST Height 164.5 cm (5' 4.76 ) 11/01/2024 11:[address] Body Mass Index 35.47 11/01/2024 11:10 AM PEDICURIST Plan of Treatment Upcoming Encounters Date Type Department Care Team (Late st Contact Info) Description 04/06/2025 11:00 AM CDT Office Visit [facility] Internal Rheumatology [address] [place] [phone] Manfred Morfin MD [address] [place] [address] Health Maintenance Due Date Last Done Comments Pap Smear 1985 MMR Vaccines (1 of 1 - Standard series) 1984 DTaP,Tdap,and Td Vaccines (1 - Tdap) 1990 Varicella Vaccines (1 of 2 - 13+ 2-dose series) 1996 Hepatitis B Vaccines (1 of 3 - 19+ 3-dose series) 2002 Mammogram 12/24/2023 12/23/2022 COVID-19 Vaccine (3 - 2023-2 5 season) 2024 05/01/2021, 04/03/2021 Influenza Vaccine (#1) 2024 RSV Vaccines and 60 Years or Older (1 - 1-dose 75+ series) 2058 AMB Pneumococcal 0-64 yrs Aged Out No longer eligible based on patient's age to complete this topic HIB Vaccines Aged Out No longer eligi ble based on patient's age to complete this topic HPV Vaccines Aged Out No longer eligi ble based on patient's age to complete this topic Hepatitis A Vaccines Aged Out No long er eligible based on patient's age to complete this topic IPV Vaccines Aged Out No longer eligi ble based on patient's age to complete this topic Meningococcal ACWY Vaccine Aged Out N o longer eligible based on patient's age to complete this topic Meningococcal B Vaccine Aged Out No l onger eligible based on patient's age to complete this topic RSV Vaccines <20 Months Aged Out No l onger eligible based on patient's age to complete this topic Procedures Procedure Name Priority Date/Time Associated Diagnosis Comments CTA PULMONARY EMBOLISM W CONTRAST STAT 09/24/2024 1:36 AM PEDICURIST XR CHEST 1 VW STAT 09/24/2024 12:59 AM PEDICURIST CBC AUTOMATED STAT 09/24/2024 12:28 AM PEDICURIST D-DIMER STAT 09/24/2024 12:28 AM PEDICURIST LIPASE STAT 09/24/2024 12:28 AM PEDICURIST MAGNESIUM STAT 09/24/2024 12:28 AM PEDICURIST HIGH SENSITIVITY TROPONIN I STAT 09/24/2024 12:28 AM PEDICURIST CMP STAT 09/24/2024 12:28 AM PEDICURIST CBC AND DIFFERENTIAL STAT 09/24/2024 12:28 AM PEDICURIST EKG STAT 09/23/2024 7:02 PM PEDICURIST Chest pain, unspecified type ED INFORMATION EXCHANGE 09/23/2024 6:[address] FACIAL BONES WO CONTRAST STAT 08/29/2024 4:[address] HEAD WO CONTRAST STAT 08/29/2024 4 :[address] CERVICAL SPINE WO CONTRAST STAT 08/29/2024 4:[address] LUMBAR SPINE WO CONTRAST STAT 08/29/2024 4:22 PM PEDICURIST ED INFORMATION EXCHANGE 08/29/2024 3:31 PM PEDICURIST BI DIAGNOSTIC BILATERAL Routine 12/23/2022 1:50 PM CDT Breast pain from Last 3 Months or Most Recently Relevant to Health Maintenance Results * CT angiogram pulmonary embolism with contrast (09/24/2024 1:36 AM PEDICURIST) Anatomical Region Laterality Modality Chest Computed Tomogra phy Narrative 09/24/2024 2:03 AM PEDICURIST EXAM: CTA OF THE CHEST. History: Chest pain, elevated D-dimer. Comparison: Chest radiograph 09/24/2024, CTA of the chest 12/12/2023 Technique: Multiplanar CT images through the thorax were obtained following administration of IV contrast. MIP images and 3-D reconstructions were also acquired. FINDINGS: Heart size is normal. No pericardial effusion. Great vessels are unremarkable. No pulmonary arterial filling defects. No enlarged intrathoracic lymph nodes. No consolidation within the lungs. No pleural fluid and no pneumothorax. No lung masses or lung nodules. Within the visualized upper abdomen, no acute findings. Status post cholecystectomy. No acute osseous abnormalities. Impression: Normal CTA of the chest All CT scans are performed using dose optimization techniques as appropriate to the performed exam and include at least one of the following: Automated exposure control, adjustment of the mA and/or kV according to size, and the use of iterative reconstruction technique. Electronically signed by: BLAKE RIVERA M.D. Date: 09/24/2024 Time: 02:02 Procedure Note Blake Rivera MD - 09/24/2024 EXAM: CTA OF THE CHEST. History: Chest pain, elevated D-dimer. Comparison: Chest radiograph 09/24/2024, CTA of the chest 12/12/2023 Technique: Multiplanar CT images through the thorax were obtainedfollowing administration of IV contrast. MIP images and 3-Dreconstructions were also acquired. FINDINGS: Heart size is normal. No pericardial effusion. Great vesselsare unremarkable. No pulmonary arterial filling defects. No enlargedintrathoracic lymph nodes. No consolidation within the lungs. No pleuralfluid and no pneumothorax. No lung masses or lung nodules. Within the visualized upper abdomen, no acute findings. Status postcholecystectomy. No acute osseous abnormalities. Impression: Normal CTA of the chest All CT scans are performed using dose optimization techniques asappropriate to the performed exam and include at least one of the following: Automated exposure control, adjustment ofthe mA and/or kV according to size, and the use of iterativereconstruction technique. Electronically signed by: BLAKE RIVERA M.D. Date: 09/24/2024 Time: 02:02 Can Stahl MD G CT PROCEDURES Final Result * X-ray chest 1 view (09/24/2024 12:59 AM PEDICURIST) Anatomical Region Laterality Modality Chest Computed Radiogr aphy Narrative 09/24/2024 7:28 AM PEDICURIST EXAM: PORTABLE CHEST HISTORY: Chest pain COMPARISON: Single-view chest 12/12/2023 FINDINGS: The cardiomediastinal silhouette is stable. The lungs are clear bilaterally. There are no acute osseous abnormalities. IMPRESSION: No evidence of pulmonary disease. Electronically signed by: JENNA CARR M.D. Date: 09/24/2024 Time: 07:27 Procedure Note Cas Carr MD - 09/24/2024 EXAM: PORTABLE CHEST HISTORY: Chest pain COMPARISON: Single-view chest 12/12/2023 FINDINGS: The cardiomediastinal silhouette is stable. The lungs areclear bilaterally. There are no acute osseous abnormalities. IMPRESSION: No evidence of pulmonary disease. Electronically signed by: JENNA CARR M.D. Date: 09/24/2024 Time: 07:27 us Can Stahl MD IMG XR PROCEDURES Final Result * High Sensitivity Troponin I (09/24/2024 12:28 AM PEDICURIST) Pathologist [facility] hs Troponin I <2.3 <=15.0 ng/L 09/24/2024 1:07 AM [facility] Comment:The High Sensitivity Troponin I result should be interpreted in light of the total clinical presentation of the patient, including: symptoms, clinical history, data from additional tests, and other appropriate information. Blood Venous blood specimen / Unknown Existing Catheter / Unknown 09/24/2024 12:28 AM PEDICURIST 09/24/2024 12:34 AM PEDICURIST us Can Stahl MD LAB BLOOD ORDERABLES Final Resul t [facility] [address] [place] [address] * CBC Automated (09/24/2024 12:28 AM [facility]) White Blood Count 5.5 4.0 - 10.5 10*3/uL 09/24/2024 12:41 AM [facility] Red Blood Count 4.35 4.20 - 5.40 10*6/uL 09/24/2024 12:41 AM [facility] Nucleated RBCs Relative 0.00 % 09/24/2024 12:41 AM [facility] Nucleated RBCs Absolute 0.00 0.00 - 0.02 10*3/uL 09/24/2024 12:41 AM [facility] Hemoglobin 14.0 12.5 - 16.0 g/dL 09/24/2024 12:41 AM [facility] Hematocrit 41.6 37.0 - 47.0 % 09/24/2024 12:41 AM [facility] MCV 95.6 78.0 - 100.0 fL 09/24/2024 12:41 AM [facility] MCH 32.2 27.0 - 37.0 pg 09/24/2024 12:41 AM [facility] MCHC 33.7 32.0 - 36.0 g/dL 09/24/2024 12:41 AM [facility] SD 46.1 36.4 - 46.3 fL 09/24/2024 12:41 AM [facility] Red Cell Distribution Width 13.0 11.5 - 14.5 % 09/24/2024 12:41 AM [facility] Platelet Count 224 150 - 450 10*3/uL 09/24/2024 12:41 AM [facility] Mean Platelet Volume 9.3 6.0 - 10.8 fL 09/24/2024 12:41 AM [facility] Neutrophils Relative 30.4 % 09/24/2024 12:41 AM [facility] Immature Granulocytes Relative 0.2 % 09/24/2024 12:41 AM [facility] Lymphocytes Relative 54.4 % 09/24/2024 12:41 AM [facility] Monocytes Relative 13.5 % 09/24/2024 12:41 AM [facility] Eosinophils Relative 1.3 % 09/24/2024 12:41 AM [facility] Basophils Relative 0.2 % 09/24/2024 12:41 AM [facility] Neutrophils Absolute 1.67 1.50 - 6.60 10*3/uL 09/24/2024 12:41 AM [facility] Immature Granulocytes Absolute 0.01 0.00 - 0.20 10*3/uL 09/24/2024 12:41 AM [facility] Lymphocytes Absolute 2.98 1.00 - 3.50 10*3/uL 09/24/2024 12:41 AM [facility] Monocytes Absolute 0.74 0.00 - 1.00 10*3/uL 09/24/2024 12:41 AM [facility] Eosinophils Absolute 0.07 0.00 - 0.70 10*3/uL 09/24/2024 12:41 AM [facility] Basophils Absolute 0.01 0.00 - 0.10 10*3/uL 09/24/2024 12:41 AM [facility] Blood Venous blood specimen / Unknown Existing Catheter / Unknown 09/24/2024 12:28 AM PEDICURIST 09/24/2024 12:34 AM [facility] us Can Stahl MD LAB BLOOD ORDERABLES Final Resul t [facility] [address] [place] [address] * (ABNORMAL) D-Dimer (09/24/2024 12:28 AM PEDICURIST) D-Dimer Hs Quantitative 576(HH) 215 - 500 ng/mL[FEU ] 09/24/2024 12:54 AM [facility] Comment:This assay is offere d for exclusion purposes as follows: The possibility of DVT/VTE/PE in a patient with a D-dimer results less than or equal to 500ng/mL appears to be unlikely. Conversely, patients with results greater than 500 ng/mL require further testing in order to diagnose DVT/VTE/PE. Please correltae all lab results with clinical findings. Blood Venous blood specimen / Unknown Existing Catheter / Unknown 09/24/2024 12:28 AM PEDICURIST 09/24/2024 12:34 AM PEDICURIST us Can Stahl MD LAB BLOOD ORDERABLES Final Resul t Performing Organization Address City/[facility]/ZIP Co de Phone Number [address] [address] * Magnesium (09/24/2024 12:28 AM [facility]) Pathologist [facility] Magnesium 2.2 1.9 - 2.7 mg/dL 09/24/2024 1:01 AM [facility] Blood Venous blood specimen / Unknown Existing Catheter / Unknown 09/24/2024 12:28 AM PEDICURIST 09/24/2024 12:34 AM PEDICURIST us Can Stahl MD LAB BLOOD ORDERABLES Final Resul t [address] [address] * Lipase (09/24/2024 12:28 AM PEDICURIST) Pathologist [facility] Lipase 28 11 - 82 U/L 09/24/2024 1:01 AM [facility] Blood Venous blood specimen / Unknown Existing Catheter / Unknown 09/24/2024 12:28 AM PEDICURIST 09/24/2024 12:34 AM PEDICURIST us Can Stahl MD LAB BLOOD ORDERABLES Final Resul t [facility] [address] [place] [address] * CMP (09/24/2024 12:28 AM [facility]) Sodium 139 136 - 145 mmol/L 09/24/2024 1:01 AM [facility] Potassium 3.9 3.3 - 4.9 mmol/L 09/24/2024 1:01 AM [facility] Chloride 104 98 - 107 mmol/L 09/24/2024 1:01 AM [facility] Carbon Dioxide 25 21 - 31 mmol/L 09/24/2024 1:01 AM [facility] Blood Urea Nitrogen 13 7 - 25 mg/dL 09/24/2024 1:01 AM [facility] Creatinine 0.77 0.60 - 1.30 mg/dL 09/24/2024 1:01 AM [facility] Glucose 89 74 - 109 mg/dL 09/24/2024 1:01 AM [facility] Calcium 9.0 8.6 - 10.3 mg/dL 09/24/2024 1:01 AM [facility] AST/SGOT 23 13 - 39 U/L 09/24/2024 1:01 AM [facility] ALT/SGPT 17 7 - 52 U/L 09/24/2024 1:01 AM [facility] Alk Phos 57 34 - 104 U/L 09/24/2024 1:01 AM [facility] Total Protein 7.9 6.4 - 8.9 g/dL 09/24/2024 1:01 AM [facility] Albumin 4.42 3.50 - 5.70 g/dL 09/24/2024 1:01 AM [facility] Bilirubin,Total 0.3 0.3 - 1.0 mg/dL 09/24/2024 1:01 AM [facility] GFR Estimate (CKD-EPI) 99 mL/min 09/24/2024 1:01 AM [facility] Comment:Calculation based on the Chronic Kidney Disease Epidemiology Collaboration (CKD-EPI) equation refit without adjustment for race. Anion Gap Without K 10 2 - 15 mmol/L 09/24/2024 1:01 AM [facility] Blood Venous blood specimen / Unknown Existing Catheter / Unknown 09/24/2024 12:28 AM PEDICURIST 09/24/2024 12:34 AM PEDICURIST Can Stahl MD LAB BLOOD [place] [address] * EKG (09/23/2024 7:02 PM PEDICURIST) 09/23/2024 7:02 PM PEDICURIST Narrative [facility] - 09/27/2024 10:28 PM [place] [address] Test Date: 2024-09-23 Pat Name: JOSE ROBERTO WHITE Department: [facility] EM[facility]GENCY DEPARTMENT Room: Gender: Female Radiology Teacher: AJITH Thomas : 1985 Requested By: Order Number: [id number] Reading MD: Alexandrea Lockwood MD Measurements Intervals [place] Rate: 107 P: 47 GA: 134 QRS: 30 QRSD: 86 T: 24 QT: 324 QTc: 432 Interpretive Statements Sinus tachycardia Minimal voltage criteria for LVH, may be normal variant Borderline ECG Electronically Signed On 09-27-2024 22:27:35 PEDICURIST by Alexandrea Lockwood MD Procedure Note Alexandrea Cowan MD - 09/27/2024 [place] [address] Test Date: 2024-09-23 Pat Name: JOSE ROBERTO WHITE Department: [facility] Room: Gender: Female Radiology Teacher: AJITH Thomas : 1985 Requested By: Order Number: [id number] Reading MD: Alexandrea Lockwood MD Measurements Intervals [place] Rate: 107 P: 47 GA: 134 QRS: 30 QRSD: 86 T: 24 QT: 324 QTc: 432 Interpretive Statements Sinus tachycardia Minimal voltage criteria for LVH, may be normal variant Borderline ECG Electronically Signed On 09-27-2024 22:27:35 PEDICURIST by Alexandrea Lockwood MD Can WOMACK EKG Final Result DILIA WOMACK EPIP[facility]ANY * ED INFORMATION EXCHANGE (09/23/2024 6:45 PM PEDICURIST) Only the most recent of2 resultswithin the time period is included. Narrative 09/23/2024 6:45 PM PEDICURIST Ordered by an unspecified provider. [facility] NUR[facility]REAT[facility] Final Result * CT facial bones without contrast (08/29/2024 4:48 PM PEDICURIST) Anatomical Region Laterality Modality Head Computed Tomogra phy Narrative 08/29/2024 5:14 PM PEDICURIST EXAM: CT MAXILLOFACIAL BONES WITHOUT CONTRAST HISTORY: Fall with right mandibular pain COMPARISON: None TECHNIQUE: Multi-slice transaxial images are acquired through the maxillofacial bones with 2-D reconstructed images. All CT scans are performed using dose optimization techniques as appropriate to the performed exam and includes at least one of the following: Automated exposure control, adjustment of the mA and/or kV according to size, and the use of iterative reconstruction technique. FINDINGS: The mandibular condyles are seated in the glenoid fossa. No acute fracture or dislocation. The orbital blanco are intact. The nasal septum is chronically deviated leftward. The paranasal sinuses and mastoid air cells are clear. IMPRESSION: - No acute fracture or dislocation. - Chronic leftward deviation of the nasal septum. . All CT scans are performed using dose optimization techniques as appropriate to the performed exam and include at least one of the following: Automated exposure control, adjustment of the mA and/or kV according to size, and the use of iterative reconstruction technique. Electronically signed by: KEENA MALHOTRA D.O. Date: 08/29/2024 Time: 17:12 Procedure Note Keena Malhotra, DO - 08/29/2024 EXAM: CT MAXILLOFACIAL BONES WITHOUT CONTRAST HISTORY: Fall with right mandibular pain COMPARISON: None TECHNIQUE: Multi-slice transaxial images are acquired through themaxillofacial bones with 2-D reconstructed images. All CT scans areperformed using dose optimization techniques as appropriate to theperformed exam and includes at least one of the following: Automatedexposure control, adjustment of the mA and/or kV according to size, andthe use of iterative reconstruction technique. FINDINGS: The mandibular condyles are seated in the glenoid fossa. Noacute fracture or dislocation. The orbital blanco are intact. The nasalseptum is chronically deviated leftward. The paranasal sinuses andmastoid air cells are clear. IMPRESSION: - No acute fracture or dislocation. - Chronic leftward deviation of the nasal septum. . All CT scans are performed using dose optimization techniques asappropriate to the performed exam and include at least one of the following: Automated exposure control, adjustment ofthe mA and/or kV according to size, and the use of iterativereconstruction technique. Electronically signed by: KEENA MALHOTRA D.O. Date: 08/29/2024 Time: 17:[address] PROCEDURES Final Result * CT head without contrast (08/29/2024 4:47 PM PEDICURIST) Anatomical Region Laterality Modality Head Computed Tomogra phy Narrative 08/29/2024 5:03 PM PEDICURIST EXAM: CT HEAD WITHOUT CONTRAST TECHNIQUE: Noncontrast CT of the head with multiple reformats. HISTORY: Fall COMPARISON: 05/27/2024 FINDINGS: Ventricular size is normal. Cat-white matter interfaces are preserved with no evidence of acute infarct. No evidence of intracranial hemorrhage. No midline shift or mass effect. No ectopia. Paranasal sinuses and mastoid air cells are clear. Orbital contents are normal. The calvarium is intact. IMPRESSION: 1. No acute findings. All CT scans are performed using dose optimization techniques as appropriate to the performed exam and includes at least one of the following: Automated exposure control, adjustment of the mA and/or kV according to size, and the use of iterative reconstruction technique. All CT scans are performed using dose optimization techniques as appropriate to the performed exam and include at least one of the following: Automated exposure control, adjustment of the mA and/or kV according to size, and the use of iterative reconstruction technique. Electronically signed by: LETITIA STRINGER M.D. Date: 08/29/2024 Time: 16:52 Procedure Note Letitia Stringer MD - 08/29/2024 EXAM: CT HEAD WITHOUT CONTRAST TECHNIQUE: Noncontrast CT of the head with multiple reformats. HISTORY: Fall COMPARISON: 05/27/2024 FINDINGS: Ventricular size is normal. Cat-white matter interfaces are preservedwith no evidence of acute infarct. No evidence of intracranialhemorrhage. No midline shift or mass effect. No ectopia. Paranasalsinuses and mastoid air cells are clear. Orbital contents are normal.The calvarium is intact. IMPRESSION: 1. No acute findings. All CT scans are performed using dose optimization techniques asappropriate to the performed exam and includes at least one of thefollowing: Automated exposure control, adjustment of the mA and/or kVaccording to size, and the use of iterative reconstruction technique. All CT scans are performed using dose optimization techniques asappropriate to the performed exam and include at least one of the following: Automated exposure control, adjustment ofthe mA and/or kV according to size, and the use of iterativereconstruction technique. Electronically signed by: LETITIA STRINGER M.D. Date: 08/29/2024 Time: 16:52 Balaji Baig MD IMG CT PROCEDURES Final Result * CT cervical spine without contrast (08/29/2024 4:23 PM PEDICURIST) Anatomical Region Laterality Modality C-spine Computed Tomogra phy Narrative 08/29/2024 4:39 PM PEDICURIST EXAM: CT CERVICAL SPINE WITHOUT CONTRAST. HISTORY: Fracture COMPARISON: None TECHNIQUE: Serial axial images of the cervical spine were obtained from the skull base through the lung apices without contrast. These were viewed in multiple planes. FINDINGS: Vertebral bodies demonstrate normal height, disc space and alignment. Odontoid process is unremarkable. Vertebral body height and disc spaces are maintained. There is mild facet arthropathy. There is no lytic or blastic lesion. There is no acute compression fracture or subluxation. C1 ring is intact. Limited views of the soft tissues are unremarkable. IMPRESSION: 1. No acute compression fracture or subluxation. 2. Mild facet arthropathy. All CT scans are performed using dose optimization techniques as appropriate to the performed exam and include at least one of the following: Automated exposure control, adjustment of the mA and/or kV according to size, and the use of iterative reconstruction technique. Electronically signed by: NAT MALIN M.D. Date: 08/29/2024 Time: 16:36 Procedure Note Nat Malin MD - 08/29/2024 EXAM: CT CERVICAL SPINE WITHOUT CONTRAST. HISTORY: Fracture COMPARISON: None TECHNIQUE: Serial axial images of the cervical spine were obtained fromthe skull base through the lung apices without contrast. These wereviewed in multiple planes. FINDINGS: Vertebral bodies demonstrate normal height, disc space andalignment. Odontoid process is unremarkable. Vertebral body height anddisc spaces are maintained. There is mild facet arthropathy. There is nolytic or blastic lesion. There is no acute compression fracture orsubluxation. C1 ring is intact. Limited views of the soft tissues are unremarkable. IMPRESSION: 1. No acute compression fracture or subluxation. 2. Mild facet arthropathy. All CT scans are performed using dose optimization techniques asappropriate to the performed exam and include at least one of the following: Automated exposure control, adjustment ofthe mA and/or kV according to size, and the use of iterativereconstruction technique. Electronically signed by: NAT MALIN M.D. Date: 08/29/2024 Time: 16:36 Can [facility] CT PROCEDURES Final Resul t * CT lumbar spine without contrast (08/29/2024 4:22 PM PEDICURIST) Anatomical Region Laterality Modality L-spine Computed Tomogra phy Narrative 08/29/2024 4:44 PM PEDICURIST EXAM: CT LUMBAR SPINE WITHOUT CONTRAST. HISTORY: Back pain following a fall. COMPARISON: Radiograph 07/30/2022. Abdominal CT 07/17/2024. TECHNIQUE: Multiple axial images of the lumbar spine were obtained without intravenous contrast. Images were reformatted in the sagittal and coronal planes. FINDINGS: The normal curvature and alignment are maintained. Vertebral body and intervertebral disc heights are normal. No fracture or subluxation is seen. No acute bony central canal stenosis identified. Adjacent soft tissues are unremarkable. IMPRESSION: No acute abnormality of the lumbar spine. All CT scans are performed using dose optimization techniques as appropriate to the performed exam and include at least one of the following: Automated exposure control, adjustment of the mA and/or kV according to size, and the use of iterative reconstruction technique. Electronically signed by: TATE GÓMEZ M.D. Date: 08/29/2024 Time: 16:40 Procedure Note Tate Gómez MD - 08/29/2024 EXAM: CT LUMBAR SPINE WITHOUT CONTRAST. HISTORY: Back pain following a fall. COMPARISON: Radiograph 07/30/2022. Abdominal CT 07/17/2024. TECHNIQUE: Multiple axial images of the lumbar spine were obtainedwithout intravenous contrast. Images were reformatted in the sagittal andcoronal planes. FINDINGS: The normal curvature and alignment are maintained. Vertebralbody and intervertebral disc heights are normal. No fracture orsubluxation is seen. No acute bony central canal stenosis identified.Adjacent soft tissues are unremarkable. IMPRESSION: No acute abnormality of the lumbar spine. All CT scans are performed using dose optimization techniques asappropriate to the performed exam and include at least one of the following: Automated exposure control, adjustment ofthe mA and/or kV according to size, and the use of iterativereconstruction technique. Electronically signed by: TATE GÓMEZ M.D. Date: 08/29/2024 Time: 16:40 [facility] Aaflaq IM CT PROCEDURES Final Result * Bilateral digital diagnostic mammogram (12/23/2022 1:50 PM CDT) Anatomical Region Laterality Modality Breast Bilateral Mammography Narrative 12/23/2022 2:09 PM CDT EXAMINATION(S) PERFORMED Patient is seen for Bilateral digital diagnostic mammogram. Study was evaluated with a computer aided detection (CAD) system and performed with 2D/3D mammography. INDICATIONS Jose Roberto White is a 37 y.o. female and is being seen for Breast pain. No known family history of breast cancer. COMPARISON TO PREVIOUS EXAMINATION(S) N/A FINDINGS The breasts have scattered areas of fibroglandular density. There is no suspicious mass or calcification present. IMPRESSION Right breast assessment: Negative. Left breast assessment: Negative. Routine Screening Mammogram in 1 Yr is recommended for both breasts. 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
--- OUTSIDE RECORDS SUMMARY | 2024-11-23 15:38 | XMS_ITS | Clinical Summary ---
[facility] Organization [facility] Address [address] [place]: Epic Prelude ADT [place] PATEL [address] Care Team Providers Care Fashion Editor Name Role Phone Unavailable Primary Care Provider Unavailabl e Allergies No known active allergies Medications hydroxychloroqui ne (PLAQUENIL) 200 mg tablet Take 200 mg by mouth daily. Active DULoxetine (CYMBALTA) 30 mg Capsule, Delayed Release(E.C.) Take 30 mg by mouth daily. Active methotrexate (RHEUMATREX) 2.5 mg Tablet Take 2.5 mg by mouth every 7 days. 4 tabs weekly Active folic acid (FOLVITE) 1 mg tablet Take 1 mg by mouth daily. Active amitriptyline (ELAVIL) 10 mg tablet Take 10 mg by mouth daily at bedtime. Active cyclobenzaprine (FLEXERIL) 10 mg tablet Take 10 mg by mouth 3 times daily as needed for Spasm. Active Encounters Date Type Department Care Team Description 10/11/2024 External Device Data ST[facility] ABSTRACTION Provider, Abstract from Last 3 Months Social History Tobacco Use Types Packs/Day Years Used Date Smoking Tobacco: Never Assessed Comments Unknown Sex and Gender Information Value Date Recorded Sex Assigned at Not on file Legal Sex Female 9:34 AM CDT Gender Identity Not on file Sexual Orientation Not on file Plan of Treatment Health Maintenance Due Date Last Done Comments DTAP/TDAP/TD VACCINES (1 - Tdap) 2002 HEPATITIS B VACCINES (1 of 3 - 19+ 3-dose series) 2002 CERVICAL CANCER SCREENING 2013 BREAST CANCER SCREENING 2023 INFLUENZA VACCINE (#1) 2024 07/07/2020 HPV VACCINES Aged Out No longer eligi ble based on patient's age to complete this topic
--- OUTSIDE RECORDS SUMMARY | 2024-11-23 15:38 | XMS_ITS | Encounter Summary ---
Author Organization [facility] Address [address] [place] [address] Care Team Providers Care Marketing Segment Manager Name Role Phone Unavailable Primary Care Provider Unavailabl e Encounter Details Date Type Department Care Team (Late st Contact Info) Description 10/13/2023 Abstract [facility] Rheumatology [address] [place] [address] [address] [place] [address] Bret Rutherford MD [address] [place] [address] [address] [place] [address] Social History Tobacco Use Types Packs/Day Years Used Date Smoking Tobacco: Never Assessed Comments Unknown Sex and Gender Information Value Date Recorded Sex Assigned at Not on file Legal Sex Female 9:34 AM CDT Gender Identity Not on file Sexual Orientation Not on file documented as of this encounter Plan of Treatment Not on file documented as of this encounter Visit Diagnoses Not on filedocumented in this encounter
--- OUTSIDE RECORDS SUMMARY | 2024-11-23 15:38 | XMS_ITS | Data Portability ---
Author Organization [place] - [facility] Address [address] [place] [address] Assessment No assessment recorded. Plan of Treatment [...] view [facility] [place], [place] [address] [place] [address] [phone] JEVON Bryan REPORT Name: HANK BAZANGEORGIA Room #: : 1984 Accoun t #: [id number] Bed #: Age: 37 Years Patien t Type: Outpat ient Order Date/T beau: [id number] Sex: F Admit Date/T beau: Order# : Access ion#: Exam Descri ption: Admitt ing Diagno sis: [id number] 1 UE-SHL 2VW PLUS Dictat ed By: [...] Workst ation: 13BDG PAGE [address] (Radiology) [address] [place] [address], [address], 12/16/2022 09:29:40 12/17/19 23 12/15/2022 XR, shoul josé manuel, 2 or more view No observ ation record ed. [address] (Imaging) [address] [place] [address], [address], 12/16/2022 13:49:07 Result Notes None recorded. Problems Name Problem SNOMED Code Status Onset Date Resolution Date Notes Provider Name and Address Organization Details Recorded Time Pain of right shoulder joint [id number] 00 Active 2022 Joanne Pugh [facility] 16:19:16 Problem Notes None recorded. Procedures Surgical History None recorded. Imaging Results Imaging Date Name Status LastModified by Organiz ation Details LastModified Time 12/15/2022 XR, shoulder, 2 or more view completed [address] (Radiology) [address] [place], [address], 12/16/2022 09:29:40 12/15/2022 XR, shoulder, 2 or more view completed [address] (Imaging) [address] [place], [address], 12/16/2022 13:49:07 Procedure Notes None recorded. Medical [...] Updated DateTime 3 167.64 cm 34.1 kg/m2 65206.4 2 g 96 /min 98 % 98 % 7 122 mm[Hg] 76 mm[Hg] [facility] 3 15:36:12 Social History None recorded. Functional Status None recorded. Mental Status None recorded. Family History Nothing Reported. Medical History No medical history recorded. Gynecological HistoryNo gynecological history recorded. Obstetrics History GPAL:G 0 P 0 0 0 0 Past Encounters Encounter ID Performer Location Encounter Start Date Encounter Closed Date Diagnosis/Indication Diagnosis SNOMED-CT Code Diagnosis ICD10 Code Diagnosis Note [id number] [facility] [address] [place] [address] 12/15/2022 14:54:28 12/15/2022 16:06:03 Health Concerns Section Related Observation LastModified by Organization Detai ls LastModified Time None Recorded Concern Status LastModified by Organization Details LastModified Time None Recorded Advance Directives Directive None Recorded Payers Encounter Date Sequence Insurance Name Policy Number Policy Farooq Covered Member ID Farooq Member ID Guarantor Name 12/15/2022 1 [employer] [place] Malina [facility] ON OR AFTER 08/28/2020 (MEDICAID REPLACEMENT - HMO) [place] Merchant [id number] Georgia White OBGyn Episode No OBEpisode recorded.
--- OUTSIDE RECORDS SUMMARY | 2024-11-23 15:38 | XMS_ITS | Continuity of Care Document ---
Author Organization [facility] Address [address] [place] [address] Phone Care Team Providers Care Real Estate Leasing Manager Name Role Phone Tom ALLYSONNeftali Unavailable Unavailable [...] Provider Providers Copied on Encounter Office/outpa tient visit,[facility], [address] [place] [address], [id number], tel:[phone] [place] [facility] Body mass index (BMI) 33.0-33.9, adultWrist pain, rightWrist pain, leftOveruse syndrome of right hand, initial encounterOveruse syndrome of left hand, initial encounter 3 Tom Lindsay. [address] [place] [address], [id number] , . tel:[phone] Referring Provider: Neftali Santos, [address] [place] [address], [address] . tel:[phone] Office/outpa tient visit,[facility], [address] [place] [address], [id number], tel:[phone] [place] [facility] Radial styloid tenosynovitis [de Quervain]Ganglion , left wristPain in left wrist 3 Tom Lindsay. [address] [place] [address], [id number] , . tel:[phone] Referring Provider: Neftali Santos, [address] [place] [address], [address] . tel:[phone] Office/outpa tient visit,[facility], [address] [place] [address], [id number], tel:[phone] [place] [facility] wrist (chief complaint) Pain in unspecified wristBody mass index (BMI) 33.0-33.9, adultDe Quervain's tenosynovitis, rightCell phone elbow, right 3 Tom Lindsay. [address] [place] [address], [id number] , . tel:[phone] Referring Provider: Neftali Santos, [address] [place] [address], [address] . tel:[phone] [facility] [address] [place] [address], [id number], tel:[phone] [place] [facility] wrist (chief complaint) Body mass index (BMI) 33.0-33.9, adultEncounter for exam of blood pressure w/o abnormal findingsRadial styloid tenosynovitis [de Quervain]Ganglion , left wristPain in left wristOther specified postprocedural states 3 Tom Lindsay. [address] [place], [place], [id number] , . tel:[phone] Referring Provider: Neftali Santos, [address] [place] [address], [address] . tel:[phone] [facility], [address] [place] [address], [id number], tel:[phone] [facility] wrist (chief complaint) Body mass index (BMI) 34.0-34.9, adultEncounter for exam of blood pressure w/o abnormal findingsStatus post de Quervain's release surgery 3 Tom Lindsay. [address] [place], [place], [id number] , [place]. tel:[phone] Referring Provider: Neftali Santos, [address] [place], [address] . tel:[phone] [facility], [address] [place] [address], [id number], tel:[phone] [facility] No Information 3 Lito Peraza. [address] [place] [address], [id number] , [place]. tel:[phone] Referring Provider: Stu Singletary, [address] [place] [address], [address] . tel:[phone] [facility], [address] [place] [address], [id number], tel:[phone] [facility] No Information 3 Lito Peraza. [address] [place] [address], [id number] , [place]. tel:[phone] [facility], [address] [place] [address], [id number], tel:[phone] [facility] De Quervain's tenosynovitis, leftGanglion cyst of wrist, left 3 Lito Peraza. [address] [place], [place], [id number] , . tel:[phone] Office/outpa tient visit,est, mod [facility], [address] [place] [address], [id number], tel:[phone] [facility] hand (chief complaint) Radial styloid tenosynovitis [de Quervain]Carpal tunnel syndrome, right upper limbGanglion cyst of wrist, left 3 Tom Lindsay. [address] [place], [place], [id number] , . tel:[phone] Referring Provider: Neftali Santos, [address] [place], [address] . tel:[phone] Office/outpa tient visit,est, mod [facility], [address] [place] [address], [id number], tel:[phone] [facility] left wrist (chief complaint) Pain in left wristDe Quervain's tenosynovitis, left 3 Tom Lindsay. [address] [place], [place], [id number] , . tel:[phone] Referring Provider: Camila White, [address] [facility], [place], [address]. tel:[phone] [facility], [address] [place] [address], [id number], tel:[phone] [facility] shoulder (chief complaint) Pain in right shoulderRight carpal tunnel syndromeLevator scapula syndromeDe Quervain's tenosynovitis, left 3 Tom Lindsay. [address] [place], [place], [id number] , [place]. tel:[phone] Referring Provider: Camila White [address] [place], [address]. tel:[phone] Family History Family Member Type Diagnosis Age At Onset Problem Family history of Cancer, un known Problem Family history of Heart dise ase Problem Family history of Diabetes m kirstenshasta Payers Payer name Insurance type Covered democrat ID Authoriza tion(s) No Information Social History [...] Wr ist Xray Complete Min 3 Views ([id number]), Ordered on: Ordered Future Order: Radiology Order Wr ist Xray Complete Min 3 Views ([id number]), Ordered on: Ordered Future Order: Radiology Order Ne edle EMG, Each Extremity Complete 5 Or More Muscles ([id number]), Ordered on: Ordered Future Order: Radiology Order Ne rve Conduction Studies 5-6 ([id number]), Ordered on: Ordered Future Order: Radiology Order Sh oulder Xray Complete Min Of 2 Views ([id number]), Ordered on: Ordered History Of Present Illness [...]
--- OUTSIDE RECORDS SUMMARY | 2024-11-23 15:38 | XMS_ITS | Clinical Summary ---
Author Organization [facility] Address [facility] [place] [address] Care Team Providers Care Deputy Administrator Name Role Phone Pelletier, Garima Covarrubias CNP Primary Care Provider [phone] Allergies Active Allergy Reactions Criticality Noted Date Comments Amoxicillin Nausea Only Medium 11/04/2024 Aspirin Rash Medium 11/04/2024 Latex Rash Medium 11/04/2024 Medications ondansetron (ZOFRAN-ODT) 4 MG disintegrating tablet Take 1 tablet (4 mg total) by mouth every 8 (eight) hours as needed for Nausea. 20 tablet 5 Active ketorolac (TORADOL) 10 MG tablet Take 1 tablet (10 mg total) by mouth every 6 (six) hours as needed for Pain. 20 tablet 5 11/09/19 25 Encounters Date Type Department Care Team Description 11/04/2024 5:05 PM CAMP MANAGER - 11/04/2024 8:55 PM [facility] Emergency [facility] Emergency Room [address] [place] [id number] Leroy Sierra MD Abdominal Pain Discharge Disposition: Home or Self Care (Routine Discharge) from Last 3 Months Social History Tobacco Use Types Packs/Day Years Used Date Smoking Tobacco: Never Smokeless Tobacco: Never Tobacco Cessation:Counseling Given: Not Answered Alcohol Use Standard Drinks/Week Comments Never 0 (1 standard drink = 0.6 oz pur e alcohol) Comments No Sex and Gender Information Value Date Recorded Sex Assigned at Female 11/04/2024 5:08 PM CAMP MANAGER Legal Sex Female 4:54 PM CAMP MANAGER Gender Identity Not on file Sexual Orientation Not on file Last Filed Vital Signs Vital Sign Reading Time Taken Comments Blood Pressure 105/66 11/04/2024 8:30 PM CAMP MANAGER Pulse 122 11/04/2024 5:11 PM CAMP MANAGER Temperature 37.3 C (99.1 F) 11/04/2024 5:11 PM CAMP MANAGER Respiratory Rate 16 11/04/2024 5:11 PM CAMP MANAGER Oxygen Saturation 96% 11/04/2024 8:30 PM CAMP MANAGER Inhaled Oxygen Concentration - - Weight 95.3 kg (210 lb) 11/04/2024 5:11 PM CAMP MANAGER Height 167.6 cm (5' 6 ) 11/04/2024 5:11 PM CAMP MANAGER Body Mass Index 33.89 11/04/2024 5:11 PM CAMP MANAGER Plan of Treatment Health Maintenance Due Date Last Done Comments Annual Physical 1986 Hepatitis C 2001 DTaP, Tdap and Td Vaccines ( 1 - Tdap) 2002 Hepatitis B Vaccines (1 of 3 - 19+ 3-dose series) 2002 Mammogram Screening 2023 COVID-19 Vaccine ( - 2023-2 5 season) 2024 Influenza Adult (#1) 2024 HPV Vaccines Aged Out No longer eligi ble based on patient's age to complete this topic Meningococcal B Vaccine Aged Out No l onger eligible based on patient's age to complete this topic Meningococcal Vaccine Aged Out No tati joseline eligible based on patient's age to complete this topic Pneumococcal Vaccine: Pediat rics (0 to 5 Years) and At-Risk Patients (6 to 64 Years) Aged Out No longer eligible b ased on patient's age to complete this topic RSV Immunizations Under 20 Months Aged Out No longer eligible based on patient's age to complete this topic Procedures Procedure Name Priority Date/Time Associated Diagnosis Comments URINE BACTERIA CULTURE STAT 7:58 PM CAMP MANAGER TEST URINE STAT 11/04/2024 7:58 PM CAMP MANAGER HC URINALYSIS AUTO W/O MICRO STAT 11/04/2024 7:[address] ABD+PEL W CON STAT 11/04/2024 6:31 PM CAMP MANAGER ECG 12-LEAD STAT 11/04/2024 5:38 PM CAMP MANAGER CULTURE, BACTERIA, BLOOD STAT 11/04/2024 5:25 PM CAMP MANAGER LIPASE STAT 11/04/2024 5:25 PM CAMP MANAGER COMPREHENSIVE METABOLIC PANEL STAT 11/04/2024 5:25 PM CAMP MANAGER LACTIC ACID W REFLEX (SEPSIS) STAT 11/04/2024 5:25 PM CAMP MANAGER CBC W/DIFF AUTOMATED STAT 11/04/2024 5:25 PM CAMP MANAGER from Last 3 Months Results * URINALYSIS (11/04/2024 7:58 PM CAMP MANAGER) COLOR (U) YELLOW 11/04/2024 8:20 PM CAMP MANAGER [facility] TRANSPARENCY CLEAR 11/04/2024 8:20 PM CAMP MANAGER [facility] SPECIFIC GRAVITY (U) 1.015 1.000 - 1.030 11/04/2024 8:20 PM [facility] U PH 8.0 5.0 - 9.0 11/04/2024 8:20 PM [facility] LEUKOCYTES (U) NEGATIVE NEGATIVE 11/04/2024 8:20 PM [facility] NITRITES NEGATIVE NEGATIVE 11/04/2024 8:20 PM [facility] PROTEIN RANDOM (U) NEGATIVE NEGATIVE 11/04/2024 8:20 PM [facility] GLUCOSE (U) NEGATIVE NEGATIVE 11/04/2024 8:20 PM [facility] KETONES MG/DL (U) NEGATIVE NEGATIVE 11/04/2024 8:20 PM [facility] BILIRUBIN (U) NEGATIVE NEGATIVE 11/04/2024 8:20 PM CAMP MANAGER [facility] BLOOD (U) NEGATIVE NEGATIVE 11/04/2024 8:20 PM CAMP MANAGER [facility] URINE SPECIMEN OBTAINED BY CLEAN CATCH PROCEDURE / Unknown 11/04/2024 7:58 PM CAMP MANAGER Leroy Sierra MD URINE ORDERABLES F inal Result Performing Organization Address City/[facility]/ZIP Co de Phone Number [facility] [address] [place] [address], [place] [phone] * TEST URINE (11/04/2024 7:58 PM CAMP MANAGER) URINE HCG TEST NEGATIVE NEGATIVE 11/04/2024 8:16 PM CAMP MANAGER [facility] Comment: VERY DILUTE URINE SPECIMENS MAY NOT CONTAIN BOWLING BALL GRADER AND MARKER LEVELS OF HCG. IF IS STILL SUSPECTED, A SERUM HCG TEST IS RECOMMENDED. URINE SPECIMEN FROM URETHRA / Unknown 11/04/2024 7:58 PM CAMP MANAGER Leroy Sierra MD URINE ORDERABLES F inal Result Performing Organization Address [facility] Co de Phone Number [facility] [address] [place] [address], [place] [phone] * URINE BACTERIA CULTURE (11/04/2024 7:58 PM CAMP MANAGER) SPEC DESCRIPTION URINE CLEAN CATCH 11/04/2024 8:04 PM CAMP MANAGER [facility] SPECIAL REQUESTS NO SPECIAL REQUEST 11/04/2024 8:04 PM CAMP MANAGER [facility] CULTURE RESULT POLYMICROBIAL GROWTH CONSISTENT WITH NORMAL GENITAL ANCELMO. SUSCEPTIBILITIES NOT ROUTINELY PERFORMED. 11/07/2024 6:58 AM CAMP MANAGER [facility] URINE SPECIMEN OBTAINED BY CLEAN CATCH PROCEDURE / Unknown 11/04/2024 7:58 PM CAMP MANAGER 11/04/2024 8:09 PM CAMP MANAGER us Leroy Sierra MD MICROBIOLOGY - GEN ERAL ORDERABLES Final Result [facility] [address] [place] [address], [place] [phone] [facility] [address] [place] [address], [place] [phone] * CT ABD+PEL W CON (11/04/2024 6:31 PM CAMP MANAGER) Anatomical Region Laterality Modality Abdomen Computed Tomogra phy 11/04/2024 6:39 PM CAMP MANAGER Impressions 11/04/2024 6:46 PM CAMP MANAGER IMPRESSION: No acute finding is seen in the abdomen or pelvis to account for the patient's right-sided abdominal tenderness, vomiting, and diarrhea. Referred By: Interpreted By: Tad Iglesias DO, 11/04/2024 6:39 PM Narrative 11/04/2024 6:46 PM CAMP MANAGER [address] [place] [address] EXAMINATION: CT ABD+PEL W CON EXAM DATE: 11/04/2024 6:23 PM CLINICAL HISTORY: Right-sided abdominal tenderness, vomiting, and diarrhea that has been intermittent since July. COMPARISON: None. TECHNIQUE: Axial CT of the abdomen and pelvis was performed following intravenous administration of 75cc of Isovue-370. Coronal and sagittal reformatted reviewed. A radiation dose lowering technique was used for this procedure, which may include, but is not limited to, dose reduction technique, automated exposure control, the use of iterative reconstruction, ALARA (As Low As Reasonably Achievable) techniques, and Image Gently techniques FINDINGS: VISUALIZED LOWER THORAX: There is mild dependent atelectasis in the lower lobes. The included lung bases are clear of active opacities. The incompletely visualized heart is not enlarged. HEPATOBILIARY: The liver is normal in size without gross contour abnormality. No suspicious hepatic lesion is seen. The gallbladder is surgically absent. There is no biliary ductal dilatation. The pancreas is negative. SPLEEN: The spleen is normal in size with a splenunculus noted. GENITOURINARY: There is no adrenal mass. The kidneys demonstrate symmetric parenchymal enhancement without evidence to suggest hydronephrosis or perinephric abnormality. The urinary bladder is unremarkable. The uterus is surgically absent. AORTA: The abdominal aorta is normal in caliber. LYMPH NODES: There is no retroperitoneal, pelvic, or mesenteric adenopathy. GASTROINTESTINAL: There is no gastric or small bowel dilatation. There is a nondilated appendix. No evidence is seen to suggest bowel obstruction. PERITONEUM: There is no free intraperitoneal fluid or air. MUSCULOSKELETAL: There is no destructive osseous lesion. Procedure Note Tad Iglesias DO - 11/04/2024 [facility] [address] [facility] [address] [place] [address] EXAMINATION: CT ABD+PEL W CON EXAM DATE: 11/04/2024 6:23 PM CLINICAL HISTORY: Right-sided abdominal tenderness, vomiting, and diarrheathat has been intermittent since July. COMPARISON: None. TECHNIQUE: Axial CT of the abdomen and pelvis was performed following intravenousadministration of 75cc of Isovue-370. Coronal and sagittal reformattedreviewed. A radiation dose lowering technique was used for this procedure,which may include, but is not limited to, dose reduction technique,automated exposure control, the use of iterative reconstruction, ALARA (AsLow As Reasonably Achievable) techniques, and Image Gently techniques FINDINGS: VISUALIZED LOWER THORAX: There is mild dependent atelectasis in the lower lobes. The included lungbases are clear of active opacities. The incompletely visualized heart isnot enlarged. HEPATOBILIARY: The liver is normal in size without gross contour abnormality. Nosuspicious hepatic lesion is seen. The gallbladder is surgically absent.There is no biliary ductal dilatation. The pancreas is negative. SPLEEN: The spleen is normal in size with a splenunculus noted. GENITOURINARY: There is no adrenal mass. The kidneys demonstrate symmetric parenchymalenhancement without evidence to suggest hydronephrosis or perinephricabnormality. The urinary bladder is unremarkable. The uterus issurgically absent. AORTA: The abdominal aorta is normal in caliber. LYMPH NODES: There is no retroperitoneal, pelvic, or mesenteric adenopathy. GASTROINTESTINAL: There is no gastric or small bowel dilatation. There is a nondilatedappendix. No evidence is seen to suggest bowel obstruction. PERITONEUM: There is no free intraperitoneal fluid or air. MUSCULOSKELETAL: There is no destructive osseous lesion. IMPRESSION: No acute finding is seen in the abdomen or pelvis to account for thepatient's right-sided abdominal tenderness, vomiting, and diarrhea. Referred By: Interpreted By: Tad Iglesias DO, 11/04/2024 6:39 PM us Leroy Sierra MD CT Fi nal Result * ECG 12 lead (11/04/2024 5:38 PM CAMP MANAGER) 11/04/2024 5:38 PM CAMP MANAGER Narrative [facility] ([facility] RAD - 11/06/2024 12:10 PM CAMP MANAGER [facility] Test Date: 2024-11-04 Pat Name: GEORGIA PORETR Department: 85 Room: EXAM 505 Gender: F Blade Balancer: : 1985 Requested By: LEROY SIERRA Order Number: [id number] Reading MD: Yrn Shelby Measurements Intervals [place] Rate: 111 P: 35 AR: 128 QRS: 26 QRSD: 93 T: 8 QT: 305 QTc: 416 Interpretive Statements SINUS TACHYCARDIA MINIMAL VOLTAGE CRITERIA FOR LVH, CONSIDER NORMAL VARIANT [MEETS CRITERIA IN ONE OF: R(aVL), S(V1), R(V5), R(V5/V6)+S(V1)] ABNORMAL RHYTHM ECG No previous ECG available for comparison MANAGER Procedure Note Yrn Shelby MD - 11/06/2024 [facility] Test Date: 2024-11-04 Pat Name: GEORGIA PORTER Department: 85 Room: EXAM 505 Gender: F Blade Balancer: : 1985 Requested By: LEROY SIERRA Order Number: [id number] Reading MD: Yrn Shelby Measurements Intervals [place] Rate: 111 P: 35 AR: 128 QRS: 26 QRSD: 93 T: 8 QT: 305 QTc: 416 Interpretive Statements SINUS TACHYCARDIA MINIMAL VOLTAGE CRITERIA FOR LVH, CONSIDER NORMAL VARIANT [MEETS CRITERIAIN ONE OF: R(aVL), S(V1), R(V5), R(V5/V6)+S(V1)] ABNORMAL RHYTHM ECG No previous ECG available for comparison MANAGER us Leroy Sierra MD ECG ORDERABLES Fi nal Result Performing Organization Address City/[facility]/ZIP Co de Phone Number [facility] ([facility] RAD * LACTIC ACID W REFLEX (SEPSIS) (11/04/2024 5:25 PM CAMP MANAGER) LACTIC ACID VENOUS 1.9 0.4 - 2.0 MMOL/L 11/04/2024 6:31 PM CAMP MANAGER [facility] 11/04/2024 5:25 PM CAMP MANAGER us Leroy Sierra MD LABORATORY Fi nal Result Performing Organization Address [facility]/ZIP Co de Phone Number [facility] [address] [place] [address], [place] [phone] * (ABNORMAL) COMPREHENSIVE METABOLIC PANEL (11/04/2024 5:25 PM CAMP MANAGER) GLUCOSE 118(H) 70 - 99 MG/DL 11/04/2024 6:28 PM CAMP MANAGER [facility] BUN 16 7 - 18 MG/DL 11/04/2024 6:28 PM CAMP MANAGER [facility] CREATININE S/P/B 1.10(H) 0.55 - 1.02 MG/DL 11/04/2024 6:28 PM CAMP MANAGER [facility] SODIUM S/P/B 139 136 - 145 MMOL/L 11/04/2024 6:28 PM [facility] POTASSIUM S/P/B 3.8 3.5 - 5.1 MMOL/L 11/04/2024 6:28 PM [facility] CHLORIDE S/P/B 102 100 - 108 MMOL/L 11/04/2024 6:28 PM [facility] CO2 27.6 21 - 32 MMOL/L 11/04/2024 6:28 PM [facility] CALCIUM S/P/B 9.4 8.5 - 10.1 MG/DL 11/04/2024 6:28 PM [facility] BILIRUBIN TOTAL S/P/B 0.7 0.2 - 1.2 MG/DL 11/04/2024 6:28 PM [facility] TOTAL PROTEIN S/P/B 8.5(H) 6.4 - 8.2 G/DL 11/04/2024 6:28 PM [facility] ALBUMIN S/P/B 4.1 3.4 - 5.0 G/DL 11/04/2024 6:28 PM [facility] AST 26 15 - 37 U/L 11/04/2024 6:28 PM [facility] ALT 35 14 - 55 U/L 11/04/2024 6:28 PM [facility] ALKALINE PHOSPHATASE S/P/B 70 50 - 136 U/L 11/04/2024 6:28 PM [facility] ANION GAP 9.4 5 - 15 MMOL/L 11/04/2024 6:28 PM [facility] BUN CREATININE RATIO 14.5 6 - 26 11/04/2024 6:28 PM [facility] A/G RATIO 0.9(L) 1.0 - 2.0 RATIO 11/04/2024 6:28 PM CAMP MANAGER [facility] GFR ESTIMATE 65(L) >90 ML/MIN/1.7 3 M2 11/04/2024 6:28 PM CAMP MANAGER [facility] Comment: NOTE: eGFR is not calculated for patients <18 years of age. This is an estimated GFR calculation using the new CKD EPI creatinine equation without race and so does not require a correction factor for race. This estimated GFR should not be used for calculating drug doses. 11/04/2024 5:25 PM CAMP MANAGER Leroy Sierra MD LABORATORY Fi nal Result Performing Organization Address City/[facility]/ZIP Co de Phone Number [facility] [address] [place] [address], [place] [phone] * CULTURE, BACTERIA, BLOOD (11/04/2024 5:25 PM CAMP MANAGER) SPEC DESCRIPTION BLOOD 11/04/2024 5:16 PM CAMP MANAGER [facility] SPECIAL REQUESTS NO SPECIAL REQUEST 11/04/2024 5:16 PM CAMP MANAGER [facility] CULTURE RESULT NO GROWTH 5 DAYS 11/09/2024 7:40 AM CAMP MANAGER [facility] BLOOD SPECIMEN OBTAINED FOR BLOOD CULTURE / Unknown 11/04/2024 5:25 PM CAMP MANAGER 11/04/2024 5:44 PM CAMP MANAGER Leroy Sierra MD MICROBIOLOGY - GEN ERAL ORDERABLES Final Result [facility] [address] [place] [address], [place] [phone] [facility] [address] [place] [address], [place] [phone] * (ABNORMAL) CBC W/DIFF AUTOMATED (11/04/2024 5:25 PM CAMP MANAGER) [facility] Signature WBC 10.90 4.4 - 11.0 x10'3/uL 11/04/2024 5:49 PM [facility] RBC 4.32(L) 4.50 - 5.10 x10'6/uL 11/04/2024 5:49 PM [facility] HGB 14.0 12.3 - 15.3 G/DL 11/04/2024 5:49 PM [facility] HCT 40.5 35.9 - 44.6 % 11/04/2024 5:49 PM [facility] MCV 93.8 80.0 - 96.0 FL 11/04/2024 5:49 PM [facility] MCH 32.4(H) 25.3 - 30.9 PG 11/04/2024 5:49 PM [facility] MCHC 34.6(H) 31.0 - 34.1 G/DL 11/04/2024 5:49 PM [facility] RDW 13.1 12.4 - 15.1 % 11/04/2024 5:49 PM [facility] PLT 233 151 - 353 x10'3/uL 11/04/2024 5:49 PM [facility] MPV 9.5(L) 9.6 - 12.0 FL 11/04/2024 5:49 PM [facility] RBC MORPHOLOGY NORMAL 11/04/2024 5:49 PM [facility] PLT MORPH. NORMAL 11/04/2024 5:49 PM [facility] WBC MORPHOLOGY NORMAL 11/04/2024 5:49 PM [facility] LYMPHOCYTES % 7.2(L) 15.8 - 45.0 % 11/04/2024 5:49 PM CAMP MANAGER [facility] NEUTROPHILS % 87.6(H) 42.1 - 71.9 % 11/04/2024 5:49 PM CAMP MANAGER [facility] MONOCYTES % 4.6(L) 5.7 - 12.5 % 11/04/2024 5:49 PM CAMP MANAGER [facility] EOSINOPHILS 0.1 0.0 - 5.6 % 11/04/2024 5:49 PM CAMP MANAGER [facility] BASOPHILS 0.1 0.0 - 1.3 % 11/04/2024 5:49 PM CAMP MANAGER [facility] ABS. NEUTROPHILS 9.55(H) 1.40 - 6.00 x10'3/uL 11/04/2024 5:49 PM CAMP MANAGER [facility] IMMATURE GRANS % 0.4 0.0 - 0.5 % 11/04/2024 5:49 PM CAMP MANAGER [facility] ABS. LYMPHOCYTES 0.79(L) 0.80 - 4.70 x10'3/uL 11/04/2024 5:49 PM CAMP MANAGER [facility] 11/04/2024 5:25 PM CAMP MANAGER Leroy Sierra MD LABORATORY Fi nal Result Performing Organization Address [facility]/ZIP Co de Phone Number [facility] [address] [place] [address], * LIPASE (11/04/2024 5:25 PM CAMP MANAGER) LIPASE 36 16 - 77 UNITS/L 11/04/2024 6:28 PM CAMP MANAGER [facility] 11/04/2024 5:25 PM CAMP MANAGER Leroy Sierra MD LABORATORY Fi nal Result Performing Organization Address [facility]/ZIP Co de Phone Number [facility] () [facility] [address] [place] [address], [place] [phone] from Last 3 Months Insurance MEDICAID MEDICARE Care Teams Deputy Administrator Relationship Specialty Start Date End Date Garima Pelletier CNP [address] [place] [address] [place] [address] PCP - General Nurse Practitioner Family 11/04/24
--- OUTSIDE RECORDS SUMMARY | 2024-11-23 15:38 | XMS_ITS | Continuity of Care Document ---
Author Organization [facility] Address [address] [facility] [place] [address] Phone Care Team Providers Care Supervisor Liquid Yeast Name Role Phone Lg Woods MD Unavailable [...] [facility], [address] , [place], [address], [place] tel:[phone] [facility] No Information 4 Chuck Castanon. [address], [place], [address], [place]. tel: [phone] [facility], [address] , [place], [address], [place] tel:[phone] [facility] Headaches (chief complaint)Hx of fibromyalgia (chief complaint) Body mass index (BMI) 35.0-35.9, adultMigraine without aura and without status migrainosus, not intractableFibromyalgia 3 Chuck Castanon. [address], [place], [address], [place]. tel: [phone] [facility], [address] , [place], [address], tel:[phone] [facility] Headaches (chief complaint)Hx of fibromyalgia (chief complaint) Body mass index (BMI) 35.0-35.9, adultMigraine without aura and without status migrainosus, not intractableFibromyalgia 3 Chuck Castanon. [address], [place], [address], [place]. tel: [phone] [facility], [address] , [place], [address], [place] tel:[phone] [facility] Headaches (chief complaint)Hx of fibromyalgia (chief complaint) Body mass index (BMI) 35.0-35.9, adultMigraine without aura and without status migrainosus, not intractableFibromyalgia 3 Chuck Castanon. [address] , [place], [address], [place]. tel:[phone] [facility], [address] , [place], [address], [place] tel:[phone] [facility] Hx of fibromyalgia (chief complaint)Hea daches (chief complaint) Body mass index (BMI) 35.0-35.9, adultFibromyalgiaMigrain e without aura and without status migrainosus, not intractable 3 Chuck Castanon. [address] [facility], [place], [address], [place]. tel: [phone] [facility], [address] [facility], [place], [address], [place] tel:[phone] [facility] Hx of fibromyalgia (chief complaint) Body mass index (BMI) 35.0-35.9, adultFibromyalgia 2 Chuck Castanon. [address] [facility], [place], [address], [place]. tel: [phone] [facility], [address] [facility], [place], [address], [place] tel:[phone] [facility] Hx of fibromyalgia (chief complaint)Hea daches (chief complaint) Body mass index (BMI) 36.0-36.9, adultFibromyalgiaMigrain e without aura and without status migrainosus, not intractable 2 Chuck Castanon. [address] [facility], [place], [address], [place]. tel: [phone] [facility], [address] [facility], [place], [address], [place] tel:[phone] [facility] No Information 2 Chuck Castanon. [address] [facility], [place], [address], [place]. tel: [phone] [facility], [address] [facility], [place], [address], [place] tel:[phone] [facility] Hx of fibromyalgia (chief complaint)Hea daches (chief complaint) Body mass index (BMI) 35.0-35.9, adultFibromyalgiaMigrain e without aura and without status migrainosus, not intractable 2 Chuck Castanon. [address], [place], [address], [place]. tel:[phone] Family History Family Member Type Diagnosis Age At Onset Mother Problem HBP/diabetes Father Problem Heart disease/diabetes Payers Payer name Insurance type Covered green [...] the last visit, she reports that her broomcorn scraper was planning to put her on a [...] at this time. She notes that her broomcorn scraper is planning to put her on a [...] follow-up of fibromyalgia. She saw a local broomcorn scraper recently and he concurred with this diagnosis. [...] last office visit, she has seen a broomcorn scraper at [facility]. He confirmed the diagnosis of fibromyalgia in [...] She has seen Dr. Ramo Hopper at [facility] for evaluation of this condition. He also [...]
--- OUTSIDE RECORDS SUMMARY | 2024-11-23 15:41 | XMS_ITS | Continuity of Care Document ---
Author Organization [facility] Address [address] [facility] [address] [place] [address] Phone Care Team Providers Care Tool Dresser Name Role Phone Lg Woods MD Unavailable [...] [facility], [address] , [place], [address], [place] tel:[phone] [facility] No Information 4 Chuck Castanon. [address], [place], [address], [place]. tel: [phone] [facility], [address] , [place], [address], [place] tel:[phone] [facility] Headaches (chief complaint)Hx of fibromyalgia (chief complaint) Body mass index (BMI) 35.0-35.9, adultMigraine without aura and without status migrainosus, not intractableFibromyalgia 3 Chuck Castanon. [address], [place], [address], [place]. tel: [phone] [facility], [address] , [place], [address], tel:[phone] [facility] Headaches (chief complaint)Hx of fibromyalgia (chief complaint) Body mass index (BMI) 35.0-35.9, adultMigraine without aura and without status migrainosus, not intractableFibromyalgia 3 Chuck Castanon. [address], [place], [address], [place]. tel: [phone] [facility], [address] , [place], [address], [place] tel:[phone] [facility] Headaches (chief complaint)Hx of fibromyalgia (chief complaint) Body mass index (BMI) 35.0-35.9, adultMigraine without aura and without status migrainosus, not intractableFibromyalgia 3 Chuck Castanon. [address] , [place], [address], [place]. tel:[phone] [facility], [address] , [place], [address], [place] tel:[phone] [facility] Hx of fibromyalgia (chief complaint)Hea daches (chief complaint) Body mass index (BMI) 35.0-35.9, adultFibromyalgiaMigrain e without aura and without status migrainosus, not intractable 3 Chuck Castanon. [address] [facility], [place], [address], [place]. tel: [phone] [facility], [address] [facility], [place], [address], [place] tel:[phone] [facility] Hx of fibromyalgia (chief complaint) Body mass index (BMI) 35.0-35.9, adultFibromyalgia 2 Chuck Castanon. [address] [facility], [place], [address], [place]. tel: [phone] [facility], [address] [facility], [place], [address], [place] tel:[phone] [facility] Hx of fibromyalgia (chief complaint)Hea daches (chief complaint) Body mass index (BMI) 36.0-36.9, adultFibromyalgiaMigrain e without aura and without status migrainosus, not intractable 2 Chuck Castanon. [address] [facility], [place], [address], [place]. tel: [phone] [facility], [address] [facility], [place], [address], [place] tel:[phone] [facility] No Information 2 Chuck Castanon. [address] [facility], [place], [address], [place]. tel: [phone] [facility], [address] [facility] [address], [place], [address], [place] tel:[phone] [facility] Hx of fibromyalgia (chief complaint)Hea daches (chief complaint) Body mass index (BMI) 35.0-35.9, adultFibromyalgiaMigrain e without aura and without status migrainosus, not intractable 2 Chuck Castanon. [address], [place], [address], [place]. tel:[phone] Family History Family Member Type Diagnosis Age At Onset Mother Problem HBP/diabetes Father Problem Heart disease/diabetes Payers Payer name Insurance type Covered alliance party ID Authoriza tion(s) No Information Social [...] the last visit, she reports that her tail edger was planning to put her on a [...] at this time. She notes that her tail edger is planning to put her on a [...] follow-up of fibromyalgia. She saw a local tail edger recently and he concurred with this diagnosis. [...] last office visit, she has seen a tail edger at [facility]. He confirmed the diagnosis of fibromyalgia [...] She has seen Dr. Ramo Hopper at [facility] for evaluation of this condition. He also [...]
--- OUTSIDE RECORDS SUMMARY | 2024-11-23 15:41 | XMS_ITS | Continuity of Care Document ---
Author Organization [facility] Address [address] [place] [address] Phone Care Team Providers Care Hot Dip Tinning Supervisor Name Role Phone Tom ALLYSONNeftali Unavailable Unavailable [...] Provider Providers Copied on Encounter Office/outpa tient visit,[facility], [address] [place] [address], [id number], tel:[phone] [place] [facility] Body mass index (BMI) 33.0-33.9, adultWrist pain, rightWrist pain, leftOveruse syndrome of right hand, initial encounterOveruse syndrome of left hand, initial encounter 3 Tom Lindsay. [address] [place] [address], [id number] , . tel:[phone] Referring Provider: Neftali Santos, [address] [place] [address], [id number] . tel:[phone] Office/outpa tient visit,[facility], [address] [place] [address], [id number], tel:[phone] [place] [facility] Radial styloid tenosynovitis [de Quervain]Ganglion , left wristPain in left wrist 3 Tom Lindsay. [address] [place] [address], [id number] , . tel:[phone] Referring Provider: Neftali Santos, [address] [place] [address], [id number] . tel:[phone] Office/outpa tient visit,[facility], [address] [place] [address], [id number], tel:[phone] [place] [facility] wrist (chief complaint) Pain in unspecified wristBody mass index (BMI) 33.0-33.9, adultDe Quervain's tenosynovitis, rightCell phone elbow, right 3 Tom Lindsay. [address] [place] [address], [id number] , . tel:[phone] Referring Provider: Neftali Santos, [address] [place] [address], [id number] . tel:[phone] [facility] [address] [place] [address], [id number], tel:[phone] [place] [facility] wrist (chief complaint) Body mass index (BMI) 33.0-33.9, adultEncounter for exam of blood pressure w/o abnormal findingsRadial styloid tenosynovitis [de Quervain]Ganglion , left wristPain in left wristOther specified postprocedural states 3 Tom Lindsay. [address] [place], [place], [id number] , . tel:[phone] Referring Provider: Neftali Santos, [address] [place] [address], [id number] . tel:[phone] [facility], [address] [place] [address], [id number], tel:[phone] [facility] wrist (chief complaint) Body mass index (BMI) 34.0-34.9, adultEncounter for exam of blood pressure w/o abnormal findingsStatus post de Quervain's release surgery 3 Tom Lindsay. [address] [place], [place], [id number] , [place]. tel:[phone] Referring Provider: Neftali Santos, [address] [place], [address] . tel:[phone] [facility], [address] [place] [address], [id number], tel:[phone] [facility] No Information 3 Lito Peraza. [address] [place] [address], [id number] , [place]. tel:[phone] Referring Provider: Stu Singletary, [address] [place] [address], [id number] . tel:[phone] [facility], [address] [place] [address], [id number], tel:[phone] [facility] No Information 3 Lito Peraza. [address] [place] [address], [id number] , [place]. tel:[phone] [facility], [address] [place] [address], [id number], tel:[phone] [facility] De Quervain's tenosynovitis, leftGanglion cyst of wrist, left 3 Lito Peraza. [address] [place], [place], [id number] , . tel:[phone] Office/outpa tient visit,est, mod [facility], [address] [place] [address], [id number], tel:[phone] [facility] hand (chief complaint) Radial styloid tenosynovitis [de Quervain]Carpal tunnel syndrome, right upper limbGanglion cyst of wrist, left 3 Tom Lindsay. [address] [place], [place], [id number] , . tel:[phone] Referring Provider: Neftali Santos, [address] [place], [address] . tel:[phone] Office/outpa tient visit,est, mod [facility], [address] [place] [address], [id number], tel:[phone] [facility] left wrist (chief complaint) Pain in left wristDe Quervain's tenosynovitis, left 3 Tom Lindsay. [address] [place], [place], [id number] , . tel:[phone] Referring Provider: Camila White, [address] [facility] [address], [place], [address]. tel:[phone] [facility], [address] [place] [address], [id number], tel:[phone] [facility] shoulder (chief complaint) Pain in right shoulderRight carpal tunnel syndromeLevator scapula syndromeDe Quervain's tenosynovitis, left 3 Tom Lindsay. [address] [place], [place], [id number] , [place]. tel:[phone] Referring Provider: Camila White [address] [place], [address]. tel:[phone] Family History Family Member Type Diagnosis Age At Onset Problem Family history of Cancer, un known Problem Family history of Heart dise ase Problem Family history of Diabetes m kirstenshasta Payers Payer name Insurance type Covered alliance [...] Wr ist Xray Complete Min 3 Views (36613), Ordered on: Ordered Future Order: Radiology Order Wr ist Xray Complete Min 3 Views ([id number]), Ordered on: Ordered Future Order: Radiology Order Ne edle EMG, Each Extremity Complete 5 Or More Muscles ([id number]), Ordered on: Ordered Future Order: Radiology Order Ne rve Conduction Studies 5-6 ([id number]), Ordered on: Ordered Future Order: Radiology Order Sh oulder Xray Complete Min Of 2 Views ([id number]), Ordered on: Ordered History Of Present Illness Encounter Date Complaint History Of Prese nt Illness wrist wrist wrist hand left wrist shoulder Functional Status Date Functional Assessmen t No Information Instructions Date Instruction Additional Infor mation Giving encouragement to exercise Related to Body mass index [BMI] 33.0-33.9, adult Giving encouragement to exercise Related to Body mass index [BMI] 33.0-33.9, adult Prescribed activity/exercise edu cation Related to Body mass index [BMI] 33.0-33.9, adult Giving encouragement to exercise Related to Blood pressure check Giving encouragement to exercise Related to Body mass index [BMI] 34.0-34.9, adult Giving encouragement to exercise Related to Blood pressure check Assessments Type Assessment Date assessment Body mass index [BMI] 33.0-33.9, adult assessment Wrist pain, right assessment Wrist pain, left assessment Overuse syndrome of right hand, initial encounter assessment Overuse syndrome of left hand, i nitial encounter Patient Care Teams Name Effective Dates (start - stop) Status Members No Information
== END 2024-11-23 14:06 | disposition home or self-care (01) ==
PROVIDERS: Emergency Provider Nurse Practitioner Family
DX: S80.12XA Contusion of left lower leg, initial encounter (principal); W54.1XXA Struck by dog, initial encounter; Z85.43 Personal history of malignant neoplasm of ovary; Z85.41 Personal history of malignant neoplasm of cervix uteri; Z90.710 Acquired absence of both cervix and uterus
CPT/HCPCS: 99212; G0463

== ENCOUNTER 2025-03-07 14:58 | Emergency (ER) | payer MEDICARE, MEDICAID, SELFPAY ==
--- NOTE | 2025-03-07 15:05 | ECG_ITS ---
Test Date: 2025-03-07 15:19:12 Measurements Intervals Sawyer Rate: 94 P: 53 NC: 142 QRS: 40 QRSD: 104 T: 21 QT: 330 QTc: 414 Interpretive Statements SINUS RHYTHM CONSIDER INFERIOR INFARCT, AGE INDETERMINATE BASELINE ARTIFACT- I, II, III, AVR, AVL, AVF ABNORMAL ECG No previous ECG available for comparison Electronically Signed On 03-07-2025 16:13:20 CDT by Lincoln Carpenter D.O.
--- NOTE | 2025-03-07 15:10 | ED.CHESTPAIN ---
HPI - Chest Pain General Chief Complaint: Chest Pain Stated Complaint: chest discomfort Time Seen by Provider: 03/07/25 15:15 Source: patient, family and RN notes reviewed Mode of arrival: ambulatory Limitations: no limitations History of Present Illness HPI narrative: 39-year-old female presents Express Care with boyfriend complaining of chest pain since yesterday. Patient stated the pain started randomly approximately 24 hours ago. Patient states she has a substernal chest pressure as more on the left side of her chest. Patient states that it radiates into her left arm and back. Patient reports having nausea yesterday but states that symptom has subsided. She also developed epigastric pain when she drinks cold items. She says the chest pressure has remained constant and has not subsided since yesterday. Patient noticed today when she was walking around the chest pressure got worse until she rested, along with lightheadedness and dizziness. Patient denies any cardiac history, she has a history of fibromyalgia, anxiety, and insomnia. Patient does states she has a family history of heart disease and her father had a coronary bypass surgery performed. Patient is a nonsmoker has no history of hypertension, high cholesterol, or diabetes. Patient has not taken anything for her pain. Patient states she is allergic to aspirin. Patient does see a christmas tree farm worker but does not know the name of the christmas tree farm worker she sees. Related Data Home Medications ?Medication ?Instructions ?Recorded ?Confirmed ?Last Taken ?Type gabapentin 300 mg capsule mg 03/07/25 Unknown History phentermine 37.5 mg tablet mg 03/07/25 Unknown History prednisone 20 mg tablet mg 03/07/25 Unknown History propranolol 10 mg tablet mg 03/07/25 Unknown History trazodone 50 mg tablet mg 03/07/25 Unknown History Allergies Allergy/AdvReac Type Severity Reaction Status Date / Time aspirin Allergy Mild Rash Verified 03/07/25 15:19 latex Allergy Mild Rash Verified 03/07/25 15:19 Review of Systems Review of Systems: CONSTITUTIONAL: Denies fever, chills, or sweats. EYES: Denies visual changes, redness, or discharge. ENT: Denies rhinorrhea, congestion, sore throat, or otalgia. CARDIOVASCULAR: Positive for chest pain, left arm pain, chest pain with exertion, dizziness, lightheadedness. Negative for syncope, presyncope, palpitations, or edema. RESPIRATORY: Denies cough or dyspnea. GASTROINTESTINAL: Denies abdominal pain, vomiting, or diarrhea. Positive for nausea. GENITOURINARY: Denies dysuria or hematuria. SKIN: Denies rash or itching. MUSCULOSKELETAL: Denies back pain, joint pain, or myalgia. NEUROLOGIC: Denies headache, numbness, or weakness. PSYCHIATRIC: Denies anxiety or depression. All other systems reviewed are negative, except as documented in HPI. [facility] Past Medical History Medical History Ovarian cancer Cervical cancer Surgical History Surgical History History of total hysterectomy Family History Family History Mother Family history non-contributory Social History Social History Living arrangements: with family Gender identity (if verbalized by the patient): Female Sexual Orientation (if Verbalized by the Patient): Straight or Heterosexual Spiritual care concerns: No Comments At the time of my signature, I reviewed and agree with the nursing past medical, surgical, social, and family history. There is no relevant family history pertinent to the patient complaint. Exam Narrative: GENERAL: This is a well-nourished, well-developed adult, in no apparent distress. They are non ill-appearing, nontoxic appearing. HEAD: normocephalic, atraumatic. EYES: Sclera clear/white. Conjunctiva normal. Vision is grossly intact. Extraocular movements intact EARS: External ears normal,Hearing grossly intact. NOSE: External nose normal THROAT: Mucous membranes moist NECK: Neck supple, CARDIOVASCULAR: Regular rate and rhythm without murmurs, gallops, or rubs. Normal S1 and S2 RESPIRATORY: Clear to auscultation. Breath sounds equal bilaterally. No wheezes, rales, or rhonchi. SKIN: warm, Dry, intact with no suspicious lesions or rash, good texture and turgor. NEURO: awake, alert, and oriented to person, place and time. There were no obvious focal neurologic abnormalities. EXTREMITIES: No joint tenderness, effusion, or edema noted. Course Course Emergency Course: Portions of this record may have been created with voice recognition software Level of Care: Express Care Visit Vital Signs Vital signs: Vital Signs Temperature 97.4 F L 03/07/25 15:17 Pulse Rate 100 03/07/25 15:17 Respiratory Rate 18 03/07/25 15:17 Blood Pressure 99/69 L 03/07/25 15:17 Pulse Oximetry 100 03/07/25 15:17 Oxygen Delivery Room Air 03/07/25 15:17 Temperature 97.4 F L 03/07/25 15:17 Pulse Rate 100 03/07/25 15:17 Respiratory Rate 18 03/07/25 15:17 Blood Pressure 99/69 L 03/07/25 15:17 Pulse Oximetry 100 03/07/25 15:17 Oxygen Delivery Room Air 03/07/25 15:17 Reviewed Transfer Transfered to: Other ([facility]) Transportation: Other (Private vehicle) Transfer rationale: Higher level care, chest pain Accepting physician: Dr. Stephen Damon Transfer comments: Patient refused EMS MDM - Chest Pain MDM Narrative Medical decision making narrative: EKG sinus rhythm without any ischemic findings. No ST elevation or depression. However patient's symptoms are concerning to be cardiac in nature. Given patient's symptoms it is recommended she seek a higher level care proceed immediately to the ER. Patient is agreeable to go to [facility] ER. Recommend the patient go to a closer ER and patient declined. Called over to [facility] ER spoke with Scott MENENDEZ who is aware of this patient and Dr. Stephen Damon accepted this patient for transfer. Unable to give patient aspirin due to allergy. Patient's blood pressure is borderline therefore no nitro is given. Offered patient EMS to take patient to ER she declined and states that her boyfriend will take her to the hospital. Patient is advised to remain NPO proceed immediately to the ER. Differential Diagnosis Differential diagnosis: Likely stable angina, atypical chest pain, chest pain and other (Acute coronary syndrome) ECG Data EKG #1: Attestation: I personally reviewed and interpreted this ECG as follows: ECG completion date: 03/07/25 ECG completion time: 15:19 Prior ECG tracings: not available for review EKG Interpretation: normal rate, no ectopy, no ST changes, normal QRS, normal QT and NL axis Critical Care Time Critical Care Time Critical Care Time: No Discharge Plan Discharge Clinical Impression: Chest pain Qualifiers: Chest pain type: unspecified Qualified Code(s): R07.9 - Chest pain, unspecified Patient Disposition: Acute Care Hospital Condition: Stable Patient Language: Pashto Prescriptions: No Action trazodone 50 mg tablet prednisone 20 mg tablet phentermine 37.5 mg tablet propranolol 10 mg tablet gabapentin 300 mg capsule Follow-up/Referrals: Liyah,Garima Covarrubias [Other] Time of Disposition: 15:35
[2025-03-07 15:17] VITALS: BP 99/69; PULSE 100; RESP 18; TEMP 36.3; O2SAT 100
--- OUTSIDE RECORDS SUMMARY | 2025-03-07 16:28 | XMS_ITS | Clinical Summary ---
Author Organization [facility] Address [address] [place] [address] Care Team Providers Care [employer] Name Role Phone Garima Pelletier NP Primary Care Provider [phone] Allergies Active Allergy Reactions Criticality Noted Date Comments Aspirin Other (see comments) Medium 03/25/2020 Latex 03/24/2022 Medications acetaminophen (TYLENOL) 500 mg tablet Take 1 tablet (500 mg total) by mouth every 6 (six) hours as needed Active fluticasone propionate (FLONASE) 50 mcg/actuation nasal spray SPRAY 1 SPRAY IN EACH NOSTRIL EVERY DAY 05/13/20 22 Active topiramate (TOPAMAX) 50 mg tablet topiramate 50 mg tablet Active ergocalciferol (VITAMIN D2) 1,250 mcg (50,000 unit) capsule Vitamin D2 1,250 mcg (50,000 unit) capsule TAKE 1 CAPSULE BY MOUTH EVERY WEEK Active promethazine-DM (PROMETHAZINE-DM ) 6.25-15 mg/5 mL syrup Active famotidine (PEPCID) 20 mg tablet 04/30/20 23 Active cholestyramine (QUESTRAN) 4 gram packet MIX 1 PACKET AND drink BY MOUTH EVERY DAY 05/13/20 23 Active cetirizine (ZyrTEC) 10 mg tablet Take 1 tablet (10 mg total) by mouth daily 06/22/20 23 Active pregabalin (Lyrica) 200 mg capsuleIndicatio ns:Fibromyalgia Take 1 capsule (200 mg total) by mouth 2 (two) times a day 60 capsule 5 07/29/20 23 Active HYDROcodone-acet aminophen (NORCO) 5-325 mg per tabletIndication s:Fibromyalgia,A cute exacerbation of chronic low back pain Take 1 tablet by mouth every 6 (six) hours as needed for moderate pain 7 tablet 10/24/19 24 Active Additional Information Patient not taking.Reported on 11/01/2024 hydroxychloroqui ne (PLAQUENIL) 200 mg tablet Take 1 tablet (200 mg total) by mouth daily Active folic acid (FOLVITE) 1 mg tablet Take 1 tablet (1 mg total) by mouth daily Active gabapentin (NEURONTIN) 300 mg capsule TAKE 1 TO 3 CAPSULES BY MOUTH AT BEDTIME FOR nerve pain 12/03/19 Active escitalopram (LEXAPRO) 5 mg tablet TAKE 1 TABLET EVERY DAY BY ORAL ROUTE AT BEDTIME FOR 30 DAYS, FOR DEPRESSION AND ANXIETY. 12/01/19 24 Active DULoxetine (CYMBALTA) 20 mg capsule Take 1 capsule (20 mg total) by mouth 2 (two) times a day Active buPROPion XL (Wellbutrin XL) 150 mg 24 hr tablet TAKE 1 TABLET EVERY DAY BY ORAL ROUTE, FOR DEPRESSION. 12/01/19 24 Active amitriptyline (ELAVIL) 10 mg tablet Take 1 tablet (10 mg total) by mouth nightly Active QUEtiapine (SEROquel) 50 mg tablet Take 1.5 tablets (75 mg total) by mouth daily 12/01/19 24 Active propranoloL (INDERAL) 10 mg tablet Take 1 tablet (10 mg total) by mouth every 8 (eight) hours as needed for anxiety 05/17/20 24 Active omeprazole (PriLOSEC) 40 mg capsule Take 1 capsule (40 mg total) by mouth 2 (two) times a day before meals 06/20/20 24 Active milnacipran (Savella) 50 mg tablet tablet Take 1 tablet (50 mg total) by mouth 2 (two) times a day Active FLUoxetine (PROzac) 40 mg capsule Take 1 capsule (40 mg total) by mouth daily 06/20/20 24 Active tirzepatide, weight loss, (ZEPBOUND) 5 mg/0.5 mL Pen InjectionIndicat ions:Class 2 obesity due to excess calories without serious comorbidity with body mass index (BMI) of 35.0 to 35.9 in adult Inject 5 mg under the skin every 7 days Administer one pre-filled single-dose pen subcutaneously every 7 days. 2 mL 3 07/15/20 24 Active Additional Information Patient not taking.Reported on 11/01/2024 ondansetron (ZOFRAN) 4 mg tablet Take 1 tablet (4 mg total) by mouth every 6 (six) hours 12 tablet 07/17/20 24 Active diCYCLOMine (BENTYL) 20 mg tablet Take 1 tablet (20 mg total) by mouth 2 (two) times a day 20 tablet 07/17/20 24 Active albuterol HFA 90 mcg/actuation inhaler inhale 2 puffs every 4 hours by inhalation route as needed 10/06/19 25 Active meloxicam (MOBIC) 15 mg tablet Take 1 tablet (15 mg total) by mouth daily 07/13/20 23 Active methylPREDNISolo ne (MEDROL) 8 mg tablet TAKE 5 TABS (40MG) BY MOUTH EVERY 6 HOURS FOR 1 WEEK THEN 2 TABS (16MG) EVERY OTHER DAY FOR 1 MONTH 10/19/19 25 Active orphenadrine (NORFLEX) 100 mg 12 hr tabletIndication s:Fibromyalgia,S train of muscle, fascia and tendon of lower back, initial encounter Take 1 tablet (100 mg total) by mouth 2 (two) times a day as needed for muscle spasms 60 tablet 1 11/08/19 25 Active Active Problems Problem Noted Date Diagnosed Date Class 2 obesity due to exces s calories without serious comorbidity with body mass index (BMI) of 35.0 to 35.9 in adult 06/23/2024 Social History Tobacco Use Types Packs/Day Years [...] Comments Blood Pressure 122/76 11/01/2024 11:10 AM STOCK UNLOADER Pulse 116 11/01/2024 11:10 AM STOCK UNLOADER Temperature 36.3 C (97.4 F) 11/01/2024 11:10 AM STOCK UNLOADER Respiratory Rate 16 11/01/2024 11:10 AM STOCK UNLOADER Oxygen Saturation 99% 11/01/2024 11:10 AM STOCK UNLOADER Inhaled Oxygen Concentration - - Weight 96 kg (211 lb 9.6 oz) 11/01/2024 11:10 AM STOCK UNLOADER Height 164.5 cm (5' 4.76) 11/01/2024 11:10 AM Ariana FALCON Body Mass Index 35.47 11/01/2024 11:10 AM STOCK UNLOADER Plan of Treatment Upcoming Encounters Date Type Department Care Team (Late st Contact Info) Description 04/06/2025 11:00 AM CDT Office Visit [facility] Internal Rheumatology [address] [place] [address] Manfred Morfin MD [address] [place] [address] Health Maintenance Due Date Last Done Comments Pap Smear 1983 MMR Vaccines (1 of 1 - Standard series) 1984 Varicella Vaccines (1 of 2 - 13+ 2-dose series) 1996 Hepatitis B Vaccines (1 of 3 - 19+ 3-dose series) 2002 DTaP,Tdap,and Td Vaccines (1 - Tdap) 2004 Mammogram 12/24/2023 12/23/2022 COVID-19 Vaccine (3 - 2023-2 5 season) 2024 05/01/2021, 04/03/2021 Influenza Vaccine (Season Ended) 2025 RSV Vaccines and 60 Years or Older (1 - 1-dose 75+ series) 2058 AMB Pneumococcal 0-49 yrs Aged Out No longer eligible based [...] Procedure Name Priority Date/Time Associated Diagnosis Comments BI DIAGNOSTIC BILATERAL Routine 12/23/2022 1:50 PM CDT Breast pain from Last 3 Months or Most Recently Relevant to Health Maintenance Results * Bilateral digital diagnostic mammogram (12/23/2022 1:50 PM CDT) Anatomical Region Laterality Modality Breast Bilateral Mammography Narrative 12/23/2022 2:09 PM CDT EXAMINATION(S) PERFORMED Patient is seen for Bilateral digital diagnostic mammogram. Study was evaluated with a computer aided detection (CAD) system and performed with 2D/3D mammography. INDICATIONS Georgia White is a 37 y.o. female and [...] breasts. Overall BI-RADS category: 1 - Negative Garima Pelletier NP IM BI PROCEDURES Final Result from Last 3 Months or Most Recently Relevant to Health Maintenance Insurance [place] [address] [place] [address] [employer] MEDICAID [place]ARE Care Teams [employer] Relationship Specialty Start Date End Date Garima Pelletier NP [address] [place], [place] [id number] PCP - General Nurse Practitioner 04/14/22
--- OUTSIDE RECORDS SUMMARY | 2025-03-07 16:28 | XMS_ITS | Encounter Summary ---
Author Organization [facility] Address [address] [address] Care Team Providers Care Manager Consumer Insights Name Role Phone Lg Saravia MD Primary Care Provider Encounter Details Date Type Department Care Team (Late st Contact Info) Description 05/15/2021 Orders Only [facility] Radiology [address] [place] [address] System, Provider Not In, [address] [place] [address] Social History Tobacco Use Types Packs/Day Years Used Date Smoking Tobacco: Never Smokeless Tobacco: Never Alcohol Use Standard Drinks/Week Comments Yes 0 (1 standard drink = 0.6 oz pur e alcohol) rarely PHQ-2 Answer Date Recorded PHQ-2 Score 0 03/27/2021 Comments No Sex and Gender Information Value Date Recorded Sex Assigned at Not on file Legal Sex Female 8:24 PM CDT Gender Identity Not on file Sexual Orientation Not on file COVID-19 Exposure Response Date Recorded In the last month, have you been in contact with someone who was confirmed or suspected to have Coronavirus / COVID-19? No / Unsure 05/15/2021 5:16 AM CDT documented as of this encounter Plan of Treatment Not on file documented as of this encounter Procedures Procedure Name Priority Date/Time Associated Diagnosis Comments [facility] 05/15/2021 6:26 AM CDT documented in this encounter Results * [facility] (05/15/2021 6:26 AM CDT) 05/15/2021 6:26 AM CDT us Provider Not In System MD [facility] OR DERABLES Final Result IMAGING documented in this encounter Visit Diagnoses Not on filedocumented in this encounter Additional Health Concerns Health Status Noted Date Alive and well 03/27/2021 Assessment Noted Time PHQ-9 Depression Total Score: 10 020 1:51 PM CDT A fall risk assessment has been complete d for the patient 05/07/2021 2:17 PM CDT documented as of this encounter Care Teams Manager Consumer Insights Relationship Specialty Start Date End Date Lg Saravia MD [address] [place], [place] [id number] PCP - General Family Medicine 03/06/22 documented as of this encounter
--- OUTSIDE RECORDS SUMMARY | 2025-03-07 16:28 | XMS_ITS | Clinical Summary ---
Author Organization [facility] Address [address] [place]: Epic Prelude ADT [place] [address] Care Team Providers Care Landscape Foreman Name Role Phone Unavailable Primary Care Provider [...] times daily as needed for Spasm. Active Social History Tobacco Use Types Packs/Day Years [...] of 3 - 19+ 3-dose series) 2002 HPV/Cotest (21-29) 2004 CERVICAL CANCER SCREENING 2013 HPV/Cotest (30-65) 2013 PAP SMEAR 2013 BREAST CANCER SCREENING 2023 INFLUENZA VACCINE (#1) 2024 07/07/2020 HPV VACCINES Aged Out No longer eligi ble based on patient's age to complete this topic
--- OUTSIDE RECORDS SUMMARY | 2025-03-07 16:28 | XMS_ITS | Clinical Summary ---
Author Organization [facility] Address [address] [place] [address] Care Team Providers Care Bleach Plant Operator Name Role Phone Lg Saravia MD Primary Care Provider [phone] Allergies Active Allergy Reactions Criticality Noted Date Comments Aspirin Bruising Low 03/25/2020 Latex Rash Low 03/25/2020 Medications acetaminophen (TYLENOL) 500 mg tablet Take 500 mg by mouth every 6 (six) hours as needed for mild pain. Active hydrOXYchloroQUI NE (PLAQUENIL) 200 mg tablet Take 200 mg by mouth 2 (two) times a day. 10/15/2021 Active propranoloL (INDERAL) 10 mg tablet Take 10 mg by mouth 3 (three) times a day. Active orphenadrine (NORFLEX) 100 mg 12 hr tablet Take 100 mg by mouth 2 (two) times a day. Active Active Problems Problem Noted Date Diagnosed Date Excessive daytime sleepiness 01/14/2022 Fibromyalgia 01/14/2022 Resolved Problems Problem Noted Date Diagnosed Date Resolved Date Chronic pelvic pain in female 04/03/2021 06/26/2021 Overview (04/03/2021): Added automatically from request for surgery [id number] Fibroids 04/03/2021 05/29/2021 Overview (04/03/2021): Added automatically from request for surgery [id number] Fibroids, intramural 05/10/2020 021 Pelvic pain 04/25/2020 05/10/2020 Abnormal uterine bleeding 04/25/2020 Family History Medical History Relation Name Comments Cervical cancer Paternal Cousin Relation Name Status Comments Paternal Cousin Social History Tobacco Use Types Packs/Day Years Used Date Smoking Tobacco: Never Smokeless Tobacco: Never Tobacco Cessation:Counseling Given: No Alcohol Use Standard Drinks/Week Comments Yes 0 (1 standard drink = 0.6 oz pur e alcohol) rarely PHQ-2 Answer Date Recorded PHQ-2 Score 2 11/28/2024 Comments No Sex and Gender Information Value Date Recorded Sex Assigned at Not on file Legal Sex Female 8:24 PM CDT Gender Identity Not on file Sexual Orientation Not on file Last Filed Vital Signs Vital Sign Reading Time Taken Comments Blood Pressure 124/74 11/28/2024 10:38 AM SALES ACCOUNT COORDINATOR Pulse 119 03/06/2022 1:33 PM CDT Temperature 36.7 C (98 F) 12/29/2021 6:34 PM CDT Respiratory Rate 22 12/29/2021 10:15 PM CDT Oxygen Saturation 97% 12/29/2021 10:15 PM CDT Inhaled Oxygen Concentration - - Weight 98.2 kg (216 lb 9.6 oz) 11/28/2024 10:38 AM SALES ACCOUNT COORDINATOR Height 167.6 cm (5' 6) 11/28/2024 10:38 AM SALES ACCOUNT COORDINATOR Body Mass Index 34.96 11/28/2024 10:38 AM SALES ACCOUNT COORDINATOR Plan of Treatment Health Maintenance Due Date Last Done Comments Annual Wellness 1983 Varicella Vaccines (1 of 2 - 13+ 2-dose series) 1996 Hepatitis B Vaccines (1 of 3 - 19+ 3-dose series) 2002 Td, Tdap Vaccines Adult 2002 Pap Smear 04/17/2023 04/17/2020 Mammogram 12/24/2023 12/23/2022 COVID-19 Vaccine (3 - 2023-2 5 season) 2024 05/01/2021, 04/03/2021 Influenza Vaccination (Seaso n Ended) 2025 HIB Vaccines Aged Out No longer eligi [...] patient's age to complete this topic Meningococcal Vaccines Aged Out No lo nger eligible based on patient's age to complete this topic Pneumococcal Vaccine: Pediatrics (0 to 5 Years) and At-Risk Patients (6 to 49 Years) Aged Out No longer eligible b ased on patient's age to complete this topic RSV Mab Nirsevimab (Beyfortu s) <20 months Aged Out No longer eligible b ased on patient's age to complete this topic Rotavirus Vaccines Aged Out No longer eligible based on patient's age to complete this topic Procedures Procedure Name Priority Date/Time Associated Diagnosis Comments [facility] PAP IG, RFX APTIMA HPV ASCU + CT/NG/TV Routine 04/17/2020 2:51 PM CDT Screening for cervical cancer from Last 3 Months or Most Recently Relevant to Health Maintenance Results * (ABNORMAL) [facility] PAP w/ reflex HR HPV w/ ASCUS and GC/C/Tric (04/17/2020 2:51 PM CDT) DIAGNOSIS: Comment(A) [facility] 1 Comment: EPITHELIAL CELL ABNORMALITY. ATYPICAL SQUAMOUS CELLS OF UNDETERMINED SIGNIFICANCE (ASC-US). Specimen adequacy: Comment [facility] 1 Comment: Satisfactory for evaluation. Endocervical and/or squamous metaplastic cells (endocervical component) are present. Clinician provided ICD10: Comment [facility] 2 Comment:Z12.4 Performed by: Comment [facility] 2 Comment:Adan Watkins totechnologist Electronically signed by: Comment [facility] 1 Comment:Jose R bloom MD (Charles), Pathologist . . [facility] 1 Pathologist provided ICD10: Comment [facility] 1 Comment:R87.610 Note: Comment [facility] 2 Comment: The Pap smear is a screening test designed to aid in the detection of premalignant and malignant conditions of the uterine cervix. It is not a diagnostic procedure and should not be used as the sole means of detecting cervical cancer. Both false-positive and false-negative reports do occur. Test Methodology: Comment [facility] 2 Comment: This liquid based ThinPrep(R) pap test was screened with the use of an image guided system. . Comment [facility] 1 Comment:See below for HPV te sting results. Chlamydia, Nuc. Acid Amp Negative Negative [facility] 3 Gonococcus, Nuc. Acid Amp Negative Negative [facility] 3 Trich vag by CHI Negative Negative [facility] 3 Specimen from cervix or vagina (specimen) 04/17/2020 2:51 PM CDT 04/18/2020 Narrative [facility] - 04/25/2020 8:08 PM CDT Performed at: 01 - [facility] [id number] Roll Forming Supervisor: Paradise Montes MD, Phone: [phone] Performed at: - [facility] [id number] Roll Forming Supervisor: Britni Alexander MD, Phone: [phone] Performed at: 03 - [facility] [id number] Roll Forming Supervisor: Britni Alexander MD, Phone: [phone] Specimen Comment: Source.............Cervix;Vagina Specimen Comment: No. of containers..01 ThinPrep Vial Sue Arenas MD LAB PATHOLOGY/CYTOLOGY ORDER JAMES Final Result [facility] [address] [place] [address] [facility] 1 [facility] 2 [facility] 3 from Last 3 Months or Most Recently Relevant to Health Maintenance Insurance MEDICARE [employer] Advance Directives * Code Blue and Intubation (Latest Code Status on File) Date Activated Date Inactivated Comments 05/15/2021 9:40 AM 05/16/2021 6:01 PM Care Teams Bleach Plant Operator Relationship Specialty Start Date End Date Lg Saravia MD [address] [place] [address] PCP - General Family Medicine 03/06/22
--- OUTSIDE RECORDS SUMMARY | 2025-03-07 16:28 | XMS_ITS | Encounter Summary ---
Author Organization [facility] Address [address] [place] [address] Care Team Providers Care Consultant Name Role Phone Unavailable Primary Care Provider Unavailabl e Encounter Details Date Type Department Care Team (Late st Contact Info) Description 10/13/2023 Abstract [facility] Rheumatology [address] [place] [address] [address] [place] [address] Bret Rutherford MD [address] [place] [address] [address] [place] [address] Social History Tobacco Use Types [...]
--- OUTSIDE RECORDS SUMMARY | 2025-03-07 16:28 | XMS_ITS | Continuity of Care Document ---
Author Organization [facility] Address [address] [place] [address] Phone Care Team Providers Care Report Programmer Name Role Phone Lg Woods MD Unavailable [...] [facility], [address] , [place], [address], [place] tel:[phone] [facility] No Information 4 Chuck Castanon. [address], [place], [place], [id number] , [place]. tel: [phone] [facility], [address], [place], [address], tel:[phone] [facility] Headaches (chief complaint)Hx of fibromyalgia (chief complaint) Body mass index (BMI) 35.0-35.9, adultMigraine without aura and without status migrainosus, not intractableFibromyalgia 3 Chuck Castanon. [address], [place], [place], [id number] , [place]. tel: [phone] [facility], [address], [place], [address], tel:[phone] [facility] Headaches (chief complaint)Hx of fibromyalgia (chief complaint) Body mass index (BMI) 35.0-35.9, adultMigraine without aura and without status migrainosus, not intractableFibromyalgia 3 Chuck Castanon. [address], [place], [place], [id number] , [place]. tel: [phone] [facility], [address], [place], [address], [place] tel:[phone] [facility] Headaches (chief complaint)Hx of fibromyalgia (chief complaint) Body mass index (BMI) 35.0-35.9, adultMigraine without aura and without status migrainosus, not intractableFibromyalgia 3 Chuck Castanon. [address], [place], [place], [id number] , [place]. tel: [phone] [facility], [address], [place], [address], [place] tel:[phone] [facility] Hx of fibromyalgia (chief complaint)Hea daches (chief complaint) Body mass index (BMI) 35.0-35.9, adultFibromyalgiaMigrain e without aura and without status migrainosus, not intractable 3 Chuck Castanon. [address], [place], [place], [id number] , [place]. tel: [phone] [facility], [address] [place] [address], [place], [address], [place] tel:[phone] [facility] Hx of fibromyalgia (chief complaint) Body mass index (BMI) 35.0-35.9, adultFibromyalgia 2 Chuck Castanon. [address], [place], [place], [id number] , [place]. tel: [phone] [facility] [place], [address] [place] [address], [place], [address], [place] tel:[phone] [facility] Hx of fibromyalgia (chief complaint)Hea daches (chief complaint) Body mass index (BMI) 36.0-36.9, adultFibromyalgiaMigrain e without aura and without status migrainosus, not intractable 2 Chuck Castanon. [address], [place], [place], [id number] , [place]. tel: [phone] [facility] [place], [address], [place], [address], [place] tel: [phone] [facility] No Information 2 Chuck Castanon. [address], [place], [place], [id number] , [place]. tel: [phone] [facility] [place], [address], [place], [address], [place] tel:[phone] [facility] [place] Hx of fibromyalgia (chief complaint)Rudy marcus (chief complaint) Body mass index (BMI) 35.0-35.9, adultFibromyalgiaMigrain e without aura and without status migrainosus, not intractable 2 Chuck Castanon. [address], [place], [address] , [place]. tel:[phone] Family History Family Member Type Diagnosis Age [...] the last visit, she reports that her ict business development manager was planning to put her on a [...] at this time. She notes that her ict business development manager is planning to put her on a [...] follow-up of fibromyalgia. She saw a local ict business development manager recently and he concurred with this diagnosis. [...] last office visit, she has seen a ict business development manager at [facility]. He confirmed the diagnosis of fibromyalgia [...] has seen Dr. Ramo Hopper at [facility] for evaluation of this condition. [...]
--- OUTSIDE RECORDS SUMMARY | 2025-03-07 16:28 | XMS_ITS | Data Portability ---
Author Organization [place] - [facility] Address [address] [place] [address] Assessment No assessment recorded. Plan of Treatment [...] view [facility] [place], [place] [address] [place] [address] JEVON Bryan REPORT Name: HANK BAZANGEORGIA Room #: : 1984 Accoun t #: [id number] Bed #: Age: 37 Years Patien t Type: Outpat ient Order Date/T beau: [id number] Sex: F Admit Date/T beau: Order# : Access ion#: Exam Descri ption: Admitt ing Diagno sis: [id number] UE-SHL 2VW PLUS Dictat ed By: Jamaal Madrigal ng Physic анна: BENJA PARR Attend ing Physic анна: BENJA PARR Primar y Care Physic анна: BENJA PARR Histor y: pain in right should er [...] Workst ation: 13BDG PAGE 1 OF [address] (Radiology) [address] [place] [address], [address], 12/16/2022 09:29:40 12/17/19 23 12/15/2022 XR, shoul josé manuel, 2 or more view No observ ation record ed. [address] (Imaging) [address] [place] [address], [address], 12/16/2022 13:49:07 Result Notes None recorded. Problems Name Problem SNOMED Code Status Onset Date Resolution Date Notes Provider Name and Address Organization Details Recorded Time Pain of right shoulder joint [id number] 00 Active 2022 Joanne Pugh [facility] 16:19:16 Problem Notes None recorded. Medical Equipment None Reported. [...] saturation in Arterial blood by Pulse oximetry Systolic blood pressure Diastolic blood pressure Provider Name and Address Organization Details Last Updated DateTime 3 167.64 cm 34.1 kg/m2 34880.4 2 g 96 /min 98 % 98 % 122 mm[Hg] 76 mm[Hg] [facility] 3 15:36:12 Social History None recorded. Functional Status None recorded. Mental Status None recorded. Family History Nothing Reported. Medical History No medical history recorded. Gynecological HistoryNo gynecological history recorded. Obstetrics History GPAL:G 0 P 0 0 0 0 Past Encounters Encounter ID Performer Location Encounter Start Date Encounter Closed Date Diagnosis/Indication Diagnosis SNOMED-CT Code Diagnosis ICD10 Code Diagnosis Note [id number] Benja Parr MD [facility] [address] [place] [address] 12/15/2022 14:54:28 12/15/2022 16:06:03 Health Concerns Section Related Observation LastModified by Organization Detai ls LastModified Time None Recorded Concern Status LastModified by Organization Details LastModified Time None Recorded Advance Directives Directive None Recorded Payers Insurance Date Sequence Insurance Name Policy Number Policy Farooq Covered Member ID Farooq Member ID Guarantor Name 12/21/2022 1 [employer] BETTER HEALTH OF [facility] ON OR AFTER 08/28/2020 (MEDICAID REPLACEMENT - HMO) [place] Merchant [id number] Georgia White OBGyn Episode No OBEpisode recorded.
--- OUTSIDE RECORDS SUMMARY | 2025-03-07 16:28 | XMS_ITS | Continuity of Care Document ---
Author Organization [facility] Address [address] [place] [address] Phone Care Team Providers Care Coal Grader Name Role Phone Tom ALLYSONNeftali Unavailable Unavailable [...] Provider Providers Copied on Encounter Office/outpa tient visit,[facility], [address] [place] [address], [id number], tel:[phone] [facility] Body mass index (BMI) 33.0-33.9, adultWrist pain, rightWrist pain, leftOveruse syndrome of right hand, initial encounterOveruse syndrome of left hand, initial encounter 3 Tom Lindsay. [address] [place] [address], [id number] , . tel:[phone] Referring Provider: Neftali Santos, [address] [place] [address], [id number] . tel:[phone] Office/outpa tient visit,[facility], [address] [place] [address], [id number], tel:[phone] [facility] Radial styloid tenosynovitis [de Quervain]Ganglion , left wristPain in left wrist 3 Tom Lindsay. [address] [place] [address], [id number] , . tel:[phone] Referring Provider: Neftali Santos, [address] [place] [address], [id number] . tel:[phone] Office/outpa tient visit,[facility], [address] [place] [address], [id number], tel:[phone] [facility] wrist (chief complaint) Pain in unspecified wristBody mass index (BMI) 33.0-33.9, adultDe Quervain's tenosynovitis, rightCell phone elbow, right 3 Tom Lindsay. [address] [place] [address], [id number] , . tel:[phone] Referring Provider: Neftali Santos, [address] [place] [address], [id number] . tel:[phone] [facility] [address] [place] [address], [id number], tel:[phone] [facility] wrist (chief complaint) Body mass index (BMI) 33.0-33.9, adultEncounter for exam of blood pressure w/o abnormal findingsRadial styloid tenosynovitis [de Quervain]Ganglion , left wristPain in left wristOther specified postprocedural states 3 Tom Lindsay. [address] [place], [place], [id number] , . tel:[phone] Referring Provider: Neftali Santos, [address] [place] [address], [id number] . tel:[phone] [facility], [address] [place] [address], [id number], tel:[phone] [facility] wrist (chief complaint) Body mass index (BMI) 34.0-34.9, adultEncounter for exam of blood pressure w/o abnormal findingsStatus post de Quervain's release surgery 3 Tom Lindsay. [address] [place], [place], [id number] , [place]. tel:[phone] Referring Provider: Neftali Santos, [address] [place], [address] . tel:[phone] [facility], [address] [place] [address], [id number], tel:[phone] [facility] No Information 3 Lito Peraza. [address] [place] [address], [id number] , [place]. tel:[phone] Referring Provider: Stu Singletary, [address] [place] [address], [address] . tel:[phone] [facility], [address] [place] [address], [id number], tel:[phone] [facility] No Information 3 Lito Peraza. [address] [place] [address], [id number] , [place]. tel:[phone] [facility], [address] [place] [address], [id number], tel:[phone] [facility] De Quervain's tenosynovitis, leftGanglion cyst of wrist, left 3 Lito Peraza. [address] [place], [place], [id number] , . tel:[phone] Office/outpa tient visit,est, mod [facility], [address] [place] [address], [id number], tel:[phone] [facility] hand (chief complaint) Radial styloid tenosynovitis [de Quervain]Carpal tunnel syndrome, right upper limbGanglion cyst of wrist, left 3 Tom Lindsay. [address] [place], [place], [id number] , . tel:[phone] Referring Provider: Neftali Santos, [address] [place], [address] . tel:[phone] Office/outpa tient visit,est, mod [facility], [address] [place] [address], [id number], tel:[phone] [facility] left wrist (chief complaint) Pain in left wristDe Quervain's tenosynovitis, left 3 Tom Lindsay. [address] [place], [place], [id number] , . tel:[phone] Referring Provider: Camila White, [address] [facility], [place], [address]. tel:[phone] [facility], [address] [place] [address], [id number], tel:[phone] [facility] shoulder (chief complaint) Pain in right shoulderRight carpal tunnel syndromeLevator scapula syndromeDe Quervain's tenosynovitis, left 3 Tom Lindsay. [address] [place], [place], [id number] , [place]. tel:[phone] Referring Provider: Camila White [address] [place], [address]. tel:[phone] Family History Family Member Type Diagnosis Age [...] Wr ist Xray Complete Min 3 Views (90272), Ordered on: Ordered Future Order: Radiology Order Wr ist Xray Complete Min 3 Views ([id number]), Ordered on: Ordered Future Order: Radiology Order Ne edle EMG, Each Extremity Complete 5 Or More Muscles ([id number]), Ordered on: Ordered Future Order: Radiology Order Ne rve Conduction Studies 5-6 ([id number]), Ordered on: Ordered Future Order: Radiology Order Sh oulder Xray Complete Min Of 2 Views ([id number]), Ordered on: Ordered History Of Present Illness [...]
--- OUTSIDE RECORDS SUMMARY | 2025-03-07 16:28 | XMS_ITS | Encounter Summary ---
Author Organization [facility] Address [address] [place] [address] Care Team Providers Care Oil Field Rig Builder Name Role Phone Lg Saravia MD Primary Care Provider [phone] Encounter Details Date Type Department Care Team (Late st Contact Info) Description 03/07/2022 Orders Only [facility] [address] [facility] [place] [address] [facility] Social History Tobacco Use Types Packs/Day Years Used Date Smoking Tobacco: Never Smokeless Tobacco: Never Alcohol Use Standard Drinks/Week Comments Yes 0 (1 standard drink = 0.6 oz pur e alcohol) rarely PHQ-2 Answer Date Recorded PHQ-2 Score 2 01/14/2022 Comments No Sex and Gender Information Value Date Recorded Sex Assigned at Not on file Legal Sex Female 8:24 PM CDT Gender Identity Not on file Sexual Orientation Not on file COVID-19 Exposure Response Date Recorded In the last 10 days, have yo u been in contact with someone who was confirmed or suspected to have Coronavirus/COVID-19? No / Unsure 03/06/2022 1:23 PM CDT documented as of this encounter Plan of Treatment Not on file documented as of this encounter Visit Diagnoses Not on filedocumented in this encounter Additional Health Concerns Health Status Noted Date Alive and well 03/06/2022 Assessment Noted Time PHQ-9 Depression Total Score: 10 04/17/ 020 1:51 PM CDT A fall risk assessment has been complete d for the patient 03/06/2022 1:35 PM CDT documented as of this encounter Care Teams Oil Field Rig Builder Relationship Specialty Start Date End Date Lg Saravia MD [address] [place] [address] PCP - General Family Medicine 03/06/22 documented as of this encounter
--- OUTSIDE RECORDS SUMMARY | 2025-03-07 16:34 | XMS_ITS | Continuity of Care Document ---
Author Organization [facility] Address [address] [place] [address] Phone Care Team Providers Care Gumming Machine Operator Name Role Phone Tom ALLYSONNeftali Unavailable Unavailable [...] Provider Providers Copied on Encounter Office/outpa tient visit,[facility], [address] [place] [address], [id number], tel:[phone] [facility] Body mass index (BMI) 33.0-33.9, adultWrist pain, rightWrist pain, leftOveruse syndrome of right hand, initial encounterOveruse syndrome of left hand, initial encounter 3 Tom Lindsay. [address] [place] [address], [id number] , . tel:[phone] Referring Provider: Neftali Santos, [address] [place] [address], [id number] . tel:[phone] Office/outpa tient visit,[facility], [address] [place] [address], [id number], tel:[phone] [facility] Radial styloid tenosynovitis [de Quervain]Ganglion , left wristPain in left wrist 3 Tom Lindsay. [address] [place] [address], [id number] , . tel:[phone] Referring Provider: Neftali Santos, [address] [place] [address], [id number] . tel:[phone] Office/outpa tient visit,[facility], [address] [place] [address], [id number], tel:[phone] [facility] wrist (chief complaint) Pain in unspecified wristBody mass index (BMI) 33.0-33.9, adultDe Quervain's tenosynovitis, rightCell phone elbow, right 3 Tom Lindsay. [address] [place] [address], [id number] , . tel:[phone] Referring Provider: Neftali Santos, [address] [place] [address], [id number] . tel:[phone] [facility] [address] [place] [address], [id number], tel:[phone] [facility] wrist (chief complaint) Body mass index (BMI) 33.0-33.9, adultEncounter for exam of blood pressure w/o abnormal findingsRadial styloid tenosynovitis [de Quervain]Ganglion , left wristPain in left wristOther specified postprocedural states 3 Tom Lindsay. [address] [place], [place], [id number] , . tel:[phone] Referring Provider: Neftali Santos, [address] [place] [address], [id number] . tel:[phone] [facility], [address] [place] [address], [id number], tel:[phone] [facility] wrist (chief complaint) Body mass index (BMI) 34.0-34.9, adultEncounter for exam of blood pressure w/o abnormal findingsStatus post de Quervain's release surgery 3 Tom Lindsay. [address] [place], [place], [id number] , [place]. tel:[phone] Referring Provider: Neftali Santos, [address] [place], [address] . tel:[phone] [facility], [address] [place] [address], [id number], tel:[phone] [facility] No Information 3 Lito Peraza. [address] [place] [address], [id number] , [place]. tel:[phone] Referring Provider: Stu Singletary, [address] [place] [address], [id number] . tel:[phone] [facility], [address] [place] [address], [id number], tel:[phone] [facility] No Information 3 Lito Peraza. [address] [place] [address], [id number] , [place]. tel:[phone] [facility], [address] [place] [address], [id number], tel:[phone] [facility] De Quervain's tenosynovitis, leftGanglion cyst of wrist, left 3 Lito Peraza. [address] [place], [place], [id number] , . tel:[phone] Office/outpa tient visit,est, mod [facility], [address] [place] [address], [id number], tel:[phone] [facility] hand (chief complaint) Radial styloid tenosynovitis [de Quervain]Carpal tunnel syndrome, right upper limbGanglion cyst of wrist, left 3 Tom Lindsay. [address] [place], [place], [id number] , . tel:[phone] Referring Provider: Neftali Santos, [address] [place], [address] . tel:[phone] Office/outpa tient visit,est, mod [facility], [address] [place] [address], [id number], tel:[phone] [facility] left wrist (chief complaint) Pain in left wristDe Quervain's tenosynovitis, left 3 Tom Lindsay. [address] [place], [place], [id number] , . tel:[phone] Referring Provider: Camila White, [address] [facility], [place], [address]. tel:[phone] [facility], [address] [place] [address], [id number], tel:[phone] [facility] shoulder (chief complaint) Pain in right shoulderRight carpal tunnel syndromeLevator scapula syndromeDe Quervain's tenosynovitis, left 3 Tom Lindsay. [address] [place], [place], [id number] , [place]. tel:[phone] Referring Provider: Camila White [address] [place], [address]. tel:[phone] Family History Family Member Type Diagnosis Age [...] Wr ist Xray Complete Min 3 Views ([id number]), Ordered on: Ordered Future Order: Radiology Order Wr ist Xray Complete Min 3 Views ([id number]), Ordered on: Ordered Future Order: Radiology Order Ne edle EMG, Each Extremity Complete 5 Or More Muscles ([id number]), Ordered on: Ordered Future Order: Radiology Order Ne rve Conduction Studies 5-6 ([id number]), Ordered on: Ordered Future Order: Radiology Order Sh oulder Xray Complete Min Of 2 Views ([id number]), Ordered on: Ordered History Of Present Illness [...]
--- OUTSIDE RECORDS SUMMARY | 2025-03-07 16:34 | XMS_ITS | Continuity of Care Document ---
Author Organization [facility] Address [address] [facility] [place] [address] Phone Care Team Providers Care Sales And In Home Delivery Specialist Name Role Phone Lg Woods MD Unavailable [...] [facility], [address] , [place], [address], [place] tel:[phone] [facility] No Information 4 Chuck Castanon. [address], [place], [place], [id number] , [place]. tel: [phone] [facility], [address], [place], [address], tel:[phone] [facility] Headaches (chief complaint)Hx of fibromyalgia (chief complaint) Body mass index (BMI) 35.0-35.9, adultMigraine without aura and without status migrainosus, not intractableFibromyalgia 3 Chuck Castanon. [address], [place], [place], [id number] , [place]. tel: [phone] [facility], [address], [place], [address], tel:[phone] [facility] Headaches (chief complaint)Hx of fibromyalgia (chief complaint) Body mass index (BMI) 35.0-35.9, adultMigraine without aura and without status migrainosus, not intractableFibromyalgia 3 Chuck Castanon. [address], [place], [place], [id number] , [place]. tel: [phone] [facility], [address], [place], [address], [place] tel:[phone] [facility] Headaches (chief complaint)Hx of fibromyalgia (chief complaint) Body mass index (BMI) 35.0-35.9, adultMigraine without aura and without status migrainosus, not intractableFibromyalgia 3 Chuck Castanon. [address], [place], [place], [id number] , [place]. tel: [phone] [facility], [address], [place], [address], [place] tel:[phone] [facility] Hx of fibromyalgia (chief complaint)Hea daches (chief complaint) Body mass index (BMI) 35.0-35.9, adultFibromyalgiaMigrain e without aura and without status migrainosus, not intractable 3 Chuck Castanon. [address] [facility], [place], [place], [id number] , [place]. tel: [phone] [facility], [address] [place] [address], [place], [address], [place] tel:[phone] [facility] Hx of fibromyalgia (chief complaint) Body mass index (BMI) 35.0-35.9, adultFibromyalgia 2 Chuck Castanon. [address] [facility], [place], [place], [id number] , [place]. tel: [phone] [facility], [address] [place] [address], [place], [address], [place] tel:[phone] [facility] Hx of fibromyalgia (chief complaint)Hea daches (chief complaint) Body mass index (BMI) 36.0-36.9, adultFibromyalgiaMigrain e without aura and without status migrainosus, not intractable 2 Chuck Castanon. [address] [facility], [place], [place], [id number] , [place]. tel: [phone] [facility], [address] [facility], [place], [address], [place] tel: [phone] [facility] No Information 2 Chuck Castanon. [address] [facility], [place], [place], [id number] , [place]. tel: [phone] [facility], [address] [facility], [place], [address], [place] tel:[phone] [facility] Hx of fibromyalgia (chief complaint)Rudy marcus (chief complaint) Body mass index (BMI) 35.0-35.9, adultFibromyalgiaMigrain e without aura and without status migrainosus, not intractable 2 Chuck Castanon. [address], [place], [id number] , [place]. tel:[phone] Family History Family Member Type Diagnosis Age At Onset Mother Problem HBP/diabetes Father Problem Heart disease/diabetes Payers Payer name Insurance type Covered constitution party ID Authoriza tion(s) No Information Social [...] the last visit, she reports that her oxygen therapy technician was planning to put her on a [...] at this time. She notes that her oxygen therapy technician is planning to put her on a [...] follow-up of fibromyalgia. She saw a local oxygen therapy technician recently and he concurred with this diagnosis. [...] last office visit, she has seen a oxygen therapy technician at [facility]. He confirmed the diagnosis of fibromyalgia [...] She has seen Dr. Ramo Hopper at [facility] for evaluation of this condition. [...]
== END 2025-03-07 15:31 | disposition short-term general hospital (02) ==
DX: R07.9 Chest pain, unspecified (principal); Z85.41 Personal history of malignant neoplasm of cervix uteri; Z85.43 Personal history of malignant neoplasm of ovary; Z90.710 Acquired absence of both cervix and uterus
CPT/HCPCS: 93005; 99213; G0463